=== PATIENT | female | born 1965 | race Caucasian/White ===

== ENCOUNTER 2016-10-27 10:37 | Inpatient (IN) | payer OTHER ==
[2016-10-27] MEDS ORDERED: Sodium Chloride 0.9% 1,000 ML IV STA ×2 (11:14→13:54)
[2016-10-27] MEDS ORDERED: Iohexol 240 (50 ml) PO ONE (11:14)
--- NOTE | 2016-10-27 11:26 | ED PDOC ---
HPI: Abdomen Time Seen by Provider: 10/27/16 11:02 Chief Complaint (Nursing): ENT Problem Chief Complaint (Provider): Abd pain History Per: Patient History/Exam Limitations: no limitations Onset/Duration Of Symptoms: Days (Yesterday) Additional Complaint(s): Pt. has dizziness like room spinning only on moving. When sitting still no issues. Also 1 episode of vomit, with tinge of blood yesterday. No diarrhea. Has abd pain diffuse as well. No back pain, dysuria, weakness. No headaches. No neck pain. No fever. No headache. No cough, dyspnea, chest pain. Has sore throat, but able to swallow. She saw pcp today and sent to the ED. Past Medical History Reviewed: Nursing Documentation, Vital Signs Vital Signs: Last Vital Signs Temp 97.8 F 10/27/16 10:41 Pulse 86 10/27/16 14:05 Resp 20 10/27/16 10:41 BP 82/36 L 10/27/16 14:05 Pulse Ox 97 10/27/16 14:04 - Medical History PMH: Anemia, Bipolar Disorder, Gastritis, Hypothyroidism, Pancreatitis Denies: Alzheimer's Disease, Anxiety, Arthritis, Asthma, Atrial Fibrillation , Bronchitis, CAD, Cardia Arrhythmia, CHF, COPD, Crohn's Disease, Dementia, Depression, Diverticulitis, Emphysema, Fractures, Gall Bladder Disease, HIV, Hypercholesterolemia, Hyperthyroidism, Kidney Stones, Migraine, Mitral Valve Prolapse, Multiple Sclerosis, Osteoporosis, Paranoia, Parkinson's Disease, Peripheral Edema, Pneumonia, Post Traumatic Stress Disorder, Pulmonary Embolism , Rheumatoid Arthritis, Schizophrenia, Seizures, Sickle Cell Disease, Sexually Transmitted Disease, Sleep Apnea, TIA Other PMH: hypotension; cirrhosis - Surgical History Surgical History: Appendectomy Denies: Pacemaker - Family History Family History: States: Unknown Family Hx - Social History Current smoker - smoking cessation education provided: No Alcohol: None Drugs: Denies - Home Medications Home Medications: Ambulatory Orders Medication Instructions Recorded Lactulose [Generlac] 10 gm PO DAILY 08/21/16 Lurasidone HCl [Latuda] 80 mg PO HS 08/21/16 Ursodiol [Actigall] 300 mg PO BID 08/21/16 Zolpidem [Ambien] 10 mg PO HS PRN 08/21/16 clonazePAM [Klonopin] 0.5 mg PO TID 08/21/16 lamoTRIgine [Lamictal] 200 mg PO BID 08/21/16 Benztropine [Cogentin] 0.5 mg PO DAILY 10/27/16 Carvedilol [Coreg] 6.25 mg PO BID 10/27/16 Furosemide [Lasix] 40 mg PO DAILY 10/27/16 Levothyroxine [Synthroid] 75 mcg PO DAILY 10/27/16 Oxybutynin Chloride [Oxybutynin 10 mg PO DAILY 10/27/16 Chloride ER] Promethazine [Phenergan Syrup] 6.25 mg PO Q6H 10/27/16 Spironolactone [Aldactone] 100 mg PO DAILY 10/27/16 - Allergies Allergies/Adverse Reactions: Allergies Allergy/AdvReac Type Severity Reaction Status Date / Time No Known Allergies Allergy Verified 10/27/16 10:40 Review of Systems ROS Statement: Except As Marked, All Systems Reviewed And Found Negative Constitutional: Positive for: Weakness Gastrointestinal: Positive for: Nausea, Vomiting, Abdominal Pain, Hematemesis Neurological: Positive for: Weakness, Dizziness Physical Exam - Reviewed Nursing Documentation Reviewed: Yes Vital Signs Reviewed: Yes - Physical Exam Appears: Positive for: Uncomfortable Head Exam: Positive for: ATRAUMATIC, NORMAL INSPECTION, NORMOCEPHALIC Skin: Positive for: Normal Color, Warm, DRY Eye Exam: Positive for: EOMI, Normal appearance, PERRL ENT: Positive for: Normal ENT Inspection Neck: Positive for: Normal, Painless ROM, Supple Cardiovascular/Chest: Positive for: Regular Rate, Rhythm. Negative for: Edema Respiratory: Positive for: CNT, Normal Breath Sounds Gastrointestinal/Abdominal: Positive for: Bowel Sounds, Soft, Tenderness (mild diffuse). Negative for: Distended Back: Positive for: Normal Inspection. Negative for: L CVA Tenderness, R CVA Tenderness Extremity: Positive for: Normal ROM. 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 Negative for: Facial Droop - Laboratory Results Result Diagrams: 10/27/16 12:40 10/27/16 11:47 Interpretation Of Abn Labs: 6 hg, 37/1.3 bun/cr - ECG ECG: Positive for: Interpreted By Me, Viewed By Me ECG Rhythm: Positive for: Normal QRS, Normal ST Segment, Sinus Rhythm O2 Sat by Pulse Oximetry: 97 Pulse Ox Interpretation: Normal - CT Scan/US head ct Other Rad Studies (CT/US): Read By Radiologist Other Rad Interpretation: no acute - Progress ED Course And Treament: 1441: Stable. Spoke with Omar for Dr. Metz. Will admit tele. He will call consultants and put in further orders. Will give 500ml bolus of Lacate ringers. Pain free. BP chronically low per pt. AAOx3. Disposition - Clinical Impression Clinical Impression: Abdominal pain, Anemia, GI bleed, Pancreatitis, Dehydration - Patient ED Disposition Is Patient to be Admitted: Yes Doctor Will See Patient In The: ED Counseled Patient/Family Regarding: Studies Performed, Diagnosis - Disposition Disposition Time: 14:43 Condition: FAIR - Pt Status Changed To: Hospital Disposition Of: Inpatient - Admit Certification Admit to Inpatient:: After my assessment, the patient will require hospitalization for at least two midnights. This is because of the severity of symptoms shown, intensity of services needed, and/or the medical risk in this patient being treated as an outpatient. - POA Present On Arrival: None
--- NOTE | 2016-10-27 12:16 | CT ---
PROCEDURE: CT HEAD WITHOUT CONTRAST. HISTORY: dizziness COMPARISON: 02/01/2014 TECHNIQUE: Axial computed tomography images were obtained through the head/brain without intravenous contrast. Radiation dose: Total exam DLP = 805 mGy-cm. FINDINGS: HEMORRHAGE: No intracranial hemorrhage. BRAIN: No mass effect or edema. Minimal age related changes are appreciated. No cortical effacement is noted. VENTRICLES: Unremarkable. No hydrocephalus. CALVARIUM: Unremarkable. PARANASAL SINUSES: Mild mucosal changes are seen in the ethmoid air cells without air-fluid level. MASTOID AIR CELLS: Unremarkable as visualized. No inflammatory changes. OTHER FINDINGS: Retro-orbital regions are unremarkable. IMPRESSION: No evidence of recent infarct or intracranial hemorrhage. No interval change from prior study.
[2016-10-27] MEDS ORDERED: Iohexol 240 (50 ml) ONE (12:19)
[2016-10-27 12:22] LABS: PARTIAL THROMBOPLASTIN TIME 22.8 SECONDS (23.3-32.5)
[2016-10-27 12:30] LABS: ALB/GLOB RATIO 0.9 (1.0-2.1); ALCOHOL SERUM < 10 mg/dl (0-10); ALKALINE PHOSPHATASE 115 U/L (38-126); ALT/SGPT 52 U/L (9-52); AST/SGOT 50 U/L (14-36); BILIRUBIN,TOTAL 0.9 mg/dl (0.2-1.3); BLOOD UREA NITROGEN 37 mg/dl (7-17); CALCIUM 8.2 mg/dL (8.4-10.2); CARBON DIOXIDE 19 mmol/L (22-30); CHLORIDE 104 mmol/L (98-107); GFR AFRICAN-AMERICAN 52; GLUCOSE,RANDOM 191 mg/dL (65-105); LIPASE 343 U/L (23-300); POTASSIUM 4.5 MMOL/L (3.6-5.0); SODIUM 131 mmol/l (132-148)
[2016-10-27 13:32] LABS: BASO % 0.3 % (0.0-2.0); EOS # 0.1 K/uL (0.0-0.7); HEMATOCRIT 18.7 % (34.0-47.0); LYMPH # 1.2 K/uL (1.0-4.3); LYMPH % 22.5 % (20.0-40.0); MEAN CELL VOLUME 78.7 fl (81.0-99.0); MEAN CORPUSCULAR HEMOGLOBIN 25.4 pg (27.0-31.0); MEAN CORPUSCULAR HGB CONC 32.3 g/dL (33.0-37.0); MEAN PLATELET VOLUME 11.4 fl (7.2-11.7); MONO # 0.3 K/uL (0.0-0.8); MONO % 5.2 % (0.0-10.0); NEUT # 3.8 K/uL (1.8-7.0); NRBC % 0.2 % (0.0-0.0); RED CELL DISTRIBUTION WIDTH 18.6 % (11.5-14.5); WHITE BLOOD COUNT 5.3 K/uL (4.8-10.8)
[2016-10-27] MEDS ORDERED: Sodium Chloride 0.9% 50 ML IV ONE (14:34)
[2016-10-27] MEDS ORDERED: Iohexol 300 100 ML IJ ONE (14:34)
[2016-10-27] MEDS ORDERED: Patient's Own Med (Zolpidem [Ambien] 10 MG) PO PRN (14:34)
[2016-10-27] MEDS ORDERED: Lactated Ringer's 500 ML IV SCH (14:45)
[2016-10-27] MEDS: Pantoprazole 40 MG in Sodium Chloride 0.9% 100 ML IVPB SCH ×2 (15:24→19:00)
--- NOTE | 2016-10-27 16:14 | CT ---
PROCEDURE: CT Abdomen and Pelvis with contrast HISTORY: abd pain COMPARISON: 08/22/2016 TECHNIQUE: Contrast dose: 100 cc Radiation dose: Total exam DLP = mGy-cm. FINDINGS: LOWER THORAX: Evaluation of the lung bases reveals no evidence of infiltrate or pleural effusion. No pericardial effusion is seen. Small hiatal hernia is appreciated. LIVER: There is once again mild coarse density of the liver with prominent left lobe identified. A very small subtle hypodensity in the anterior aspect of the right lobe is unchanged. No new lesions within the liver are seen. GALLBLADDER AND BILE DUCTS: There is probable mild decrease in pericholecystic fluid when compared to prior study gallbladder wall is grossly unchanged without new wall thickening. A few small gallstones are identified in the neck of the gallbladder. Common bile duct is grossly unchanged from prior study. No new intrahepatic ductal dilatation is seen. PANCREAS: There appears to be some mild areas of peripancreatic inflammatory change surrounding the whole pancreas. Pancreatic head is once again slightly prominent without focal mass. Findings suggest pancreatitis in the correct clinical setting. No pseudocyst formation is seen. SPLEEN: Spleen is once again enlarged. A few small perisplenic varices are noted with some possible smaller subtle varices seen in the esophageal region. ADRENALS: Unremarkable. No mass. KIDNEYS AND URETERS: Unremarkable. No hydronephrosis. No solid mass. VASCULATURE: Enlarged portal veins without thrombus, with additional enlarged splenic vein. Hepatic veins are unremarkable. BOWEL: There appears to be some areas of wall thickening within the cecum and right colon similar to prior study. Remainder of the colon shows no evidence of significant wall thickening. Terminal ileum is unremarkable. Appendix is not well seen. No small bowel dilatation is seen. There is however nonspecific small bowel fold thickening. A portion of this may be related to hypoproteinemia, however enteritis could not be excluded. APPENDIX: Appendix not well seen although no right lower quadrant inflammatory changes are seen. PERITONEUM: There is been significant interval decrease and resolution of previously identified moderate ascites. There is some nonspecific induration of the mesenteric with a number of small scattered mesenteric nodes identified. LYMPH NODES: No enlarged retroperitoneal lymph nodes identified. No pelvic or inguinal adenopathy. BLADDER: Unremarkable. REPRODUCTIVE: Uterus is normal in size. No adnexal masses are noted. BONES: Moderate degenerative disc disease at L5-S1, unchanged. No new compression fractures seen. OTHER FINDINGS: There appears to be the suggestion of some mild thickening in the antrum and duodenum. Gastritis and a duodenitis are not excluded. No focal collection adjacent this region to suggest perforation is seen. The thickening in the duodenum may be related to the above pancreatitis. IMPRESSION: Resolution of previously identified moderate ascites. Findings still suggestive of cirrhosis and splenomegaly with portal vein enlargement and probable varices. Findings consistent with mild pancreatitis without pseudocyst. No common bile duct or intrahepatic ductal dilatation. Possible antritis and duodenitis which may be related to the pancreatitis. In addition there is small bowel fold thickening without bowel obstruction. Enteritis is not excluded. There is persistent cecal and proximal right colonic wall thickening noted. Mild colitis is not excluded in.
[2016-10-27] MEDS: Promethazine 6.25 MG/5 ML CUP PO SCH ×2 (17:04→21:09)
--- NOTE | 2016-10-27 18:46 | PCM.RRTMUL ---
[facility] Nurse Assessment - Vital Signs Blood Pressure:: 98/62 Pulse Rate:: 84 Responder Note - Time WEEDER THINNER was called Time WEEDER THINNER was called:: 18:44 - Location Location: [facility] - [facility] Team [facility] Leader:: Andrew Blancas (Dr. Calvin) Resident:: Jamila Sheldon - Vital Signs at Initial Assessment Blood Pressure:: 90/52 Pulse Rate:: 72 - Acute Change in Patient Acute Change in Patient: (Select all that apply): Acute change in SBP below 90mmHg - Gastro-Intestinal Current Diet Ordered: Current Diet 10/27/16 Dinner NPO Diet [DIET] Summary - Summary of Event Summary of Event: S: 51yo F with PMhx Anemia, Bipolar Disorder, Gastritis, Hypothyroidism, Pancreatitis admitted for GI bleed. WE[facility]ER THINNER call for hypotension. Denies chest pain O: BP 90/52, HR 72. CT abd reviewed with ascites and probable varices A: received 1 unit pRBC P: -run 2nd unit pRBC at faster rate -repeat CBC -3rd unit pRBC -will transfer to ICU once accepted by unit
[2016-10-27] MEDS ORDERED: LURASIDONE HCL 80 MG PO SCH (22:00)
[2016-10-27 23:57] LABS: IRON 14 ug/dL (37-170)
[2016-10-28] MEDS: Pantoprazole 40 MG in Sodium Chloride 0.9% 100 ML IVPB SCH ×5 (00:49→20:56)
[2016-10-28] MEDS: Promethazine 6.25 MG/5 ML CUP PO SCH ×5 (04:26→20:58)
[2016-10-28] MEDS: Levothyroxine 75 MCG TAB PO SCH (06:04)
[2016-10-28 10:23] LABS: HEMATOCRIT 26.4 % (34.0-47.0); MEAN CORPUSCULAR HEMOGLOBIN 27.3 pg (27.0-31.0); MEAN CORPUSCULAR HGB CONC 33.5 g/dL (33.0-37.0); WHITE BLOOD COUNT 4.3 K/uL (4.8-10.8)
--- NOTE | 2016-10-28 10:30 | CP.PCM.HP ---
History of Present Illness - History of Present Illness History of Present Illness: pt comfortable in bed, admitted for 3 days of dizziness and bloody stool. has h/ o same w/ egd/colonoscpy 1 yr ago. has seen pmd for same captain assistant nad was sent to er. gi consult pending. bw noted. s/p 2 units prbc. no abd pain. n/v, d/c, f/c. no blood bm at present. h/o pancreatitis, liver dz, pancytopenia Present on Admission - Present on Admission Any Indicators Present on Admission: No Review of Systems - Gastrointestinal Gastrointestinal: As Per HPI, Hematochezia Past Patient History - Infectious Disease Hx of Infectious Diseases: None - Tetanus Immunizations Tetanus Immunization: Unknown - Past Medical History & Family History Past Medical History?: Yes - Past Social History Smoking Status: Former Smoker - CARDIAC Hx Atrial Fibrillation: No Hx Cardia Arrhythmia: No Hx Congestive Heart Failure: No Hx Hypercholesterolemia: No Hx Hypertension: Yes Hx Mitral Valve Prolapse: No Hx Pacemaker: No Hx Peripheral Edema: No - PULMONARY Hx Asthma: No Hx Bronchitis: No Hx Chronic Obstructive Pulmonary Disease (COPD): No Hx Emphysema: No Hx Pneumonia: No Hx Pulmonary Embolism: No Hx Sleep Apnea: No - NEUROLOGICAL Hx Alzheimer's Disease: No Hx Dementia: No Hx Migraine: No Hx Multiple Sclerosis: No Hx Parkinson's Disease: No Hx Seizures: No Hx Transient Ischemic Attacks (TIA): No - HEENT Hx HEENT Problems: No Hx Blind: No - RENAL Hx Chronic Kidney Disease: No - ENDOCRINE/METABOLIC Hx Hyperthyroidism: No Hx Hypothyroidism: Yes - HEMATOLOGICAL/ONCOLOGICAL Hx Anemia: Yes Hx Human Immunodeficiency Virus (HIV): No Hx Sickle Cell Disease: No - INTEGUMENTARY Hx Dermatological Problems: No - MUSCULOSKELETAL/RHEUMATOLOGICAL Hx Falls: Yes - GASTROINTESTINAL Hx Crohn's Disease: No Hx Diverticulitis: No Hx Gall Bladder Disease: No Hx Gastritis: Yes Hx Pancreatitis: Yes - GENITOURINARY/GYNECOLOGICAL Hx Sexually Transmitted Disorders: No - PSYCHIATRIC Hx Bipolar Disorder: Yes Hx Substance Use: No - SURGICAL HISTORY Hx Appendectomy: Yes - ANESTHESIA Hx Anesthesia: Yes Hx Anesthesia Reactions: No Hx Malignant Hyperthermia: No Has any member of the family had a problem w/ anesthesia?: No Meds Allergies/Adverse Reactions: Allergies Allergy/AdvReac Type Severity Reaction Status Date / Time No Known Allergies Allergy Verified 03/18/17 10:40 Physical Exam - Constitutional Appears: Well, Non-toxic, No Acute Distress - Head Exam Head Exam: ATRAUMATIC, NORMAL INSPECTION, NORMOCEPHALIC - Eye Exam Eye Exam: EOMI, Normal appearance, PERRL Pupil Exam: NORMAL ACCOMODATION, PERRL - ENT Exam ENT Exam: Mucous Membranes Moist, Normal Exam - Neck Exam Neck exam: Positive for: Normal Inspection - Respiratory Exam Respiratory Exam: Clear to Auscultation Bilateral, NORMAL BREATHING PATTERN - Cardiovascular Exam Cardiovascular Exam: REGULAR RHYTHM, RRR, +S1, +S2 - GI/Abdominal Exam GI & Abdominal Exam: Normal Bowel Sounds, Soft. absent: Tenderness - Rectal Exam Rectal Exam: Bloody Stool - Extremities Exam Extremities exam: Positive for: full ROM, normal capillary refill, normal inspection, pedal pulses present - Back Exam Back exam: NORMAL INSPECTION - Neurological Exam Neurological exam: Alert, CN II-XII Intact, Normal Gait, Oriented x3, Reflexes Normal - Psychiatric Exam Psychiatric exam: Normal Affect, Normal Mood - Skin Skin Exam: Dry, Intact, Normal Color, Warm Additional comments: slightly pale Results - Vital Signs Recent Vital Signs: Last Vital Signs Temp 98.0 F 10/28/16 09:12 Pulse 72 10/28/16 09:16 Resp 20 10/28/16 09:12 BP 89/49 L 10/28/16 09:17 Pulse Ox 96 10/28/16 09:12 - Labs Result Diagrams: 10/28/16 08:30 10/28/16 10:30 Labs: Laboratory Results - last 24 hr 10/27/16 10/27/16 10/27/16 15:00 15:50 16:37 POC Glucose (mg/dL) 130 H Iron 14 L TIBC 397 Ferritin 9.1 L Vitamin B12 895 10/27/16 22:21 POC Glucose (mg/dL) 116 H Iron TIBC Ferritin Vitamin B12 Assessment & Plan (1) Cirrhosis of liver Assessment and Plan: gi trend bw Status: Acute (2) Colitis Assessment and Plan: npo ivf gi afebrile at this time Status: Acute (3) GI bleed Assessment and Plan: protnix gtt ?? egd/colonscopy as per gi gi consult s/p 2 units prbc monitor bw Status: Acute (4) Pancreatitis Assessment and Plan: trend lipase npo LR gi no pain at prenset Status: Acute (5) DVT prophylaxis Assessment and Plan: scd and aehose no anticoag r/t gi bleed Status: Acute (6) Pancytopenia Assessment and Plan: heme/onc trend bw s/p 2 unit prbc Status: Chronic Priority: Medium (7) Coagulopathy Assessment and Plan: r/t liver cirrhosis heme/onc Status: Acute Decision To Admit - Pt Status Changed To: Hospital Disposition Of: Inpatient - Admit Certification Admit to Inpatient:: After my assessment, the patient will require hospitalization for at least two midnights. This is because of the severity of symptoms shown, intensity of services needed, and/or the medical risk in this patient being treated as an outpatient. - . Bed Request Type: Telemetry Admitting Physician: Stanley Metz
[2016-10-28 10:41] LABS: MEAN CELL VOLUME 81.5 fl (81.0-99.0)
[2016-10-28 11:15] LABS: ALB/GLOB RATIO 0.8 (1.0-2.1); ALKALINE PHOSPHATASE 109 U/L (38-126); ALT/SGPT 55 U/L (9-52); AST/SGOT 95 U/L (14-36); BILIRUBIN,TOTAL 1.7 mg/dl (0.2-1.3); BLOOD UREA NITROGEN 21 mg/dl (7-17); CALCIUM 7.7 mg/dL (8.4-10.2); CARBON DIOXIDE 19 mmol/L (22-30); CHLORIDE 109 mmol/L (98-107); GFR AFRICAN-AMERICAN > 60; GLUCOSE,RANDOM 113 mg/dL (65-105); SODIUM 135 mmol/l (132-148); TOTAL PROTEIN 5.9 G/DL (6.3-8.2)
--- NOTE | 2016-10-28 13:07 | CP.PCM.CON ---
<Augustina March - Last Filed: 10/28/16 13:27> History of Present Illness - History of Present Illness History of Present Illness: Gastroenterology Fellow/PGY4 Consult Note 51 year old female with history of Alcoholic cirrhosis prior paracentesis 2014 and 08/2016 without SBP, GI Bleed 11/2014 with EGD showing esophageal, gastric, and splenic varices presenting with vomiting and dizziness. Patient describes onset of epigastric pain followed by one "large" episode of hematemesis with complete change of toilet bowel water. She endorses alcohol sobriety for two years. Associated dizziness on presentation, slight improvement today. Persistent constant epigastric discomfort, pain scale 6/10. She denies indigestion, acid reflux, bloating, heartburn, bloating, melena, hematochezia, weight loss, confusion, or leg swelling. She notes repeat outpatient EGD with banding [place] [address] Grover Bryant?, whom she last saw two weeks ago for routine lab work. Colonoscopy 2014 she endorses to be normal with planned surveillance in two years. Endorsed transplant evaluation at [facility] three weeks ago for routine labs and Ultrasound, Dr. Lew?, with follow up appointment 11/07/16. Family-denies colon cancer Social-endorsed sobriety for 2 years, previous one bottle of wine weekly x 10 years -quit tobacco six months ago-previous 5 cigarettes/day for 2 years, denies illicit drugs Surgery- none Review of Systems - Review of Systems Review of Systems: A 12-point review of system negative except for as above Past Patient History - Infectious Disease Hx of Infectious Diseases: None - Tetanus Immunizations Tetanus Immunization: Unknown - Past Medical History & Family History Past Medical History?: Yes - Past Social History Smoking Status: Former Smoker - CARDIAC Hx Atrial Fibrillation: No Hx Cardia Arrhythmia: No Hx Congestive Heart Failure: No Hx Hypercholesterolemia: No Hx Hypertension: Yes Hx Mitral Valve Prolapse: No Hx Pacemaker: No Hx Peripheral Edema: No - PULMONARY Hx Asthma: No Hx Bronchitis: No Hx Chronic Obstructive Pulmonary Disease (COPD): No Hx Emphysema: No Hx Pneumonia: No Hx Pulmonary Embolism: No Hx Sleep Apnea: No - NEUROLOGICAL Hx Alzheimer's Disease: No Hx Dementia: No Hx Migraine: No Hx Multiple Sclerosis: No Hx Parkinson's Disease: No Hx Seizures: No Hx Transient Ischemic Attacks (TIA): No - HEENT Hx HEENT Problems: No Hx Blind: No - RENAL Hx Chronic Kidney Disease: No - ENDOCRINE/METABOLIC Hx Hyperthyroidism: No Hx Hypothyroidism: Yes - HEMATOLOGICAL/ONCOLOGICAL Hx Anemia: Yes Hx Human Immunodeficiency Virus (HIV): No Hx Sickle Cell Disease: No - INTEGUMENTARY Hx Dermatological Problems: No - MUSCULOSKELETAL/RHEUMATOLOGICAL Hx Falls: Yes - GASTROINTESTINAL Hx Crohn's Disease: No Hx Diverticulitis: No Hx Gall Bladder Disease: No Hx Gastritis: Yes Hx Pancreatitis: Yes - GENITOURINARY/GYNECOLOGICAL Hx Sexually Transmitted Disorders: No - PSYCHIATRIC Hx Bipolar Disorder: Yes Hx Substance Use: No - SURGICAL HISTORY Hx Appendectomy: Yes - ANESTHESIA Hx Anesthesia: Yes Hx Anesthesia Reactions: No Hx Malignant Hyperthermia: No Has any member of the family had a problem w/ anesthesia?: No Meds Allergies/Adverse Reactions: Allergies Allergy/AdvReac Type Severity Reaction Status Date / Time No Known Allergies Allergy Verified 10/27/16 10:40 - Medications Medications: Current Medications Benztropine Mesylate (Cogentin) 0.5 mg PO DAILY [facility] Last Admin: 10/28/16 09:15 Dose: 0.5 mg Carvedilol (Coreg) 6.25 mg PO BID [facility] Last Admin: 10/28/16 09:16 Dose: Not Given Clonazepam (Klonopin) 0.5 mg PO TID [facility] Last Admin: 10/28/16 09:19 Dose: 0.5 mg Furosemide (Lasix) 40 mg PO DAILY [facility] Last Admin: 10/28/16 09:17 Dose: Not Given Home Med (Lurasidone Hcl [Latuda]) 80 mg PO HS [facility] Pantoprazole Sodium 40 mg/ (Sodium Chloride) 100 mls @ 20 mls/hr IVPB Q5H [facility] PRN Reason: 8 MG/HR Last Admin: 10/28/16 09:17 Dose: 20 mls/hr Lamotrigine (Lamictal) 200 mg PO BID [facility] Last Admin: 10/28/16 09:16 Dose: 200 mg Levothyroxine Sodium (Synthroid) 75 mcg PO DAILY@0630 [facility] Last Admin: 10/28/16 06:04 Dose: 75 mcg Oxybutynin Chloride (Ditropan Tab) 5 mg PO BID [facility] Last Admin: 10/28/16 09:16 Dose: 5 mg Promethazine HCl (Phenergan Syrup) 6.25 mg PO Q6H [facility] Last Admin: 10/28/16 09:16 Dose: 6.25 mg Spironolactone (Aldactone) 100 mg PO DAILY [facility] Last Admin: 10/28/16 09:15 Dose: 100 mg Ursodiol (Actigall) 300 mg PO BID [facility] Last Admin: 10/28/16 09:15 Dose: 300 mg Zolpidem Tartrate (Ambien) 10 mg PO HS PRN PRN Reason: Insomnia Physical Exam - Constitutional Appears: Non-toxic, No Acute Distress - Head Exam Head Exam: ATRAUMATIC, NORMOCEPHALIC - Eye Exam Eye Exam: EOMI, PERRL Pupil Exam: NORMAL ACCOMODATION, PERRL. absent: Miosis, Mydriatic - ENT Exam ENT Exam: Mucous Membranes Moist, Normal Oropharynx - Neck Exam Neck exam: Positive for: Full Rom, Normal Inspection - Respiratory Exam Respiratory Exam: Clear to Auscultation Bilateral. absent: Rales, Rhonchi, Wheezes - Cardiovascular Exam Cardiovascular Exam: RRR, +S1, +S2. absent: Gallop, Rubs - GI/Abdominal Exam GI & Abdominal Exam: Normal Bowel Sounds, Organomegaly, Soft, Tenderness. absent: Distended, Firm, Guarding, Rebound, Rigid - Extremities Exam Extremities exam: Positive for: full ROM. Negative for: pedal edema - Neurological Exam Neurological exam: Alert, Oriented x3 Additional comments: no asterixis - Psychiatric Exam Psychiatric exam: Normal Affect, Normal Mood - Skin Skin Exam: Dry, Intact, Normal Color, Warm Results - Vital Signs Recent Vital Signs: Last Vital Signs Temp 98.0 F 10/28/16 09:12 Pulse 72 10/28/16 09:16 Resp 20 10/28/16 09:12 BP 89/49 L 10/28/16 09:17 Pulse Ox 96 10/28/16 09:12 - Labs Result Diagrams: 10/28/16 08:30 10/28/16 10:30 Labs: Laboratory Results - last 24 hr 10/27/16 10/27/16 10/27/16 15:00 15:50 16:37 WBC RBC Hgb Hct MCV MCH MCHC RDW Sodium Potassium Chloride Carbon Dioxide Anion Gap BUN Creatinine Est GFR ( Amer) Est GFR (Non-Af Amer) POC Glucose (mg/dL) 130 H Random Glucose Calcium Iron 14 L TIBC 397 Ferritin 9.1 L Total Bilirubin AST ALT Alkaline Phosphatase Total Protein Albumin Globulin Albumin/Globulin Ratio Vitamin B12 895 10/27/16 10/28/16 10/28/16 22:21 08:30 10:30 WBC 4.3 L RBC 3.24 L Hgb 8.8 L D Hct 26.4 L MCV 81.5 D MCH 27.3 MCHC 33.5 RDW 18.0 H Sodium 135 Potassium 4.0 Chloride 109 H Carbon Dioxide 19 L Anion Gap 11 BUN 21 H Creatinine 0.9 Est GFR ( Amer) > 60 Est GFR (Non-Af Amer) > 60 POC Glucose (mg/dL) 116 H Random Glucose 113 H Calcium 7.7 L Iron TIBC Ferritin Total Bilirubin 1.7 H AST 95 H D ALT 55 H Alkaline Phosphatase 109 Total Protein 5.9 L Albumin 2.7 L Globulin 3.2 Albumin/Globulin Ratio 0.8 L Vitamin B12 Assessment & Plan - Assessment and Plan (Free Text) Assessment: 51 year old female with history of Alcoholic cirrhosis prior paracentesis 2014 and 08/2016 without SBP, GI Bleed 11/2014 with EGD showing esophageal, gastric, and splenic varices without banding presenting with hematemesis, abdominal pain, and dizziness. CT A/P PO/IV contrast showing prominent left hepatic lobe, varices, and hepatosplenomegay. Repeat outpatient EGD with banding in 2014 by established gastroneterologt ( Dr. Grover Bryant?). Colonoscopy 2015 endorsed to be normal with planned surveillance in two years. Endorsed transplant evaluation at [facility] three weeks ago for routine labs and Ultrasound, (Dr. Lew?), with follow up appointment 11/07/16. Plan: >received 3 Units pRBCs, appropriate response >trend H/H >continue PPI drip >ordered octreotide drip >ordered Doppler U/S >elevated LFTs-ordered Hepatitis panel >will benefit from EGD to evaluate known varices and suspicion of variceal bleed >low platelets, will hold two pools of platelets, Goal>[id number] to be able to perform esophageal banding >discuss EGD scheduling with attending >MELD 9 (10/27) >continue home Lasix/spironolactone, Lactulose beta teddy >patient endorses alcoholic sobriety, counselled on continued cessation <Shanique Stahl MD - Last Filed: 10/28/16 13:53> Meds - Medications Medications: Current Medications Benztropine Mesylate (Cogentin) 0.5 mg PO DAILY [facility] Last Admin: 10/28/16 09:15 Dose: 0.5 mg Carvedilol (Coreg) 6.25 mg PO BID [facility] Last Admin: 10/28/16 09:16 Dose: Not Given Clonazepam (Klonopin) 0.5 mg PO TID [facility] Last Admin: 10/28/16 09:19 Dose: 0.5 mg Furosemide (Lasix) 40 mg PO DAILY [facility] Last Admin: 10/28/16 09:17 Dose: Not Given Home Med (Lurasidone Hcl [Latuda]) 80 mg PO HS [facility] Pantoprazole Sodium 40 mg/ (Sodium Chloride) 100 mls @ 20 mls/hr IVPB Q5H [facility] PRN Reason: 8 MG/HR Last Admin: 10/28/16 09:17 Dose: 20 mls/hr Lactated Ringer's (Lactated Ringer's) 1,000 mls @ 100 mls/hr IV .Q10H [facility] Lamotrigine (Lamictal) 200 mg PO BID [facility] Last Admin: 10/28/16 09:16 Dose: 200 mg Levothyroxine Sodium (Synthroid) 75 mcg PO DAILY@0630 [facility] Last Admin: 10/28/16 06:04 Dose: 75 mcg Oxybutynin Chloride (Ditropan Tab) 5 mg PO BID [facility] Last Admin: 10/28/16 09:16 Dose: 5 mg Promethazine HCl (Phenergan Syrup) 6.25 mg PO Q6H [facility] Last Admin: 10/28/16 09:16 Dose: 6.25 mg Spironolactone (Aldactone) 100 mg PO DAILY [facility] Last Admin: 10/28/16 09:15 Dose: 100 mg Ursodiol (Actigall) 300 mg PO BID [facility] Last Admin: 10/28/16 09:15 Dose: 300 mg Zolpidem Tartrate (Ambien) 10 mg PO HS PRN PRN Reason: Insomnia Results - Vital Signs Recent Vital Signs: Last Vital Signs Temp 98.0 F 10/28/16 12:00 Pulse 70 10/28/16 12:00 Resp 18 10/28/16 12:00 BP 80/44 L 10/28/16 12:00 Pulse Ox 99 10/28/16 12:00 - Labs Result Diagrams: 10/28/16 08:30 10/28/16 10:30 Labs: Laboratory Results - last 24 hr 10/27/16 10/27/16 10/27/16 15:00 15:50 16:37 WBC RBC Hgb Hct MCV MCH MCHC RDW Sodium Potassium Chloride Carbon Dioxide Anion Gap BUN Creatinine Est GFR ( Amer) Est GFR (Non-Af Amer) POC Glucose (mg/dL) 130 H Random Glucose Calcium Iron 14 L TIBC 397 Ferritin 9.1 L Total Bilirubin AST ALT Alkaline Phosphatase Total Protein Albumin Globulin Albumin/Globulin Ratio Vitamin B12 895 10/27/16 10/28/16 10/28/16 22:21 08:30 10:30 WBC 4.3 L RBC 3.24 L Hgb 8.8 L D Hct 26.4 L MCV 81.5 D MCH 27.3 MCHC 33.5 RDW 18.0 H Sodium 135 Potassium 4.0 Chloride 109 H Carbon Dioxide 19 L Anion Gap 11 BUN 21 H Creatinine 0.9 Est GFR ( Amer) > 60 Est GFR (Non-Af Amer) > 60 POC Glucose (mg/dL) 116 H Random Glucose 113 H Calcium 7.7 L Iron TIBC Ferritin Total Bilirubin 1.7 H AST 95 H D ALT 55 H Alkaline Phosphatase 109 Total Protein 5.9 L Albumin 2.7 L Globulin 3.2 Albumin/Globulin Ratio 0.8 L Vitamin B12 Attending/Attestation - Attestation I have personally seen and examined this patient.: Yes I have fully participated in the care of the patient.: Yes I have reviewed all pertinent clinical information: Yes Notes (Text): 10/28/16 13:47 Patient seen and examined with Gi fellow on rounds this am. This is a 51 year old female with history of alcoholic cirrhosis complicated by ascites, varices with prior paracentesis 05/2015 and 08/2016 without SBP, GI Bleed 11/2014 with EGD showing esophageal, gastric, and splenic varices without banding presenting with one episode of hematemesis yesterday. No episodes since admission. Has pancytopenia due to cirrhosis. CT A/P PO/IV contrast showing prominent left hepatic lobe, varices, and hepatosplenomegay. She states last alcohol drink was one year ago. States had appointment with [facility] three weeks ago for routine labs and Ultrasound, (Dr. Lew?), with follow up appointment 11/07/16. Will get doppler sonogram to rule out PV/ HV thrombus. Will order hepatitis and autoimmune serologies for new elevation of transminases.I am doubtful that she is completely abstinent from alcohol. Will benefit from repeat EGD to assess varices. Clear liquid diet today and tentative EGd in am. Discussed with the team. Continue octreotide and monitor for clinical symptoms of bleeding. Current MELD 8. Needs close hemodynamic monitoring.
[2016-10-28] MEDS: Lactated Ringer's 1,000 ML IV SCH ×2 (13:53→23:45)
--- NOTE | 2016-10-28 19:23 | CP.PCM.CON ---
History of Present Illness - History of Present Illness History of Present Illness: 51 year old female with a history of alcoholic cirrhosis complicated by portal hypertension with esophageal varices, splenomegaly, admitted with anemia and hematochezia/melena. The patient reports to seeing blood in the toilet bowl with black stools for about 1 weeks time. She has had this happen before and knee to come to the ER. In the ER she was found to be hypotensive and with a hgb of 6. She received 3 units of PRBC with improvement in her symptoms. Past medical history: alcoholic cirrhosis complicated by portal hypertension with esophageal varices, splenomegaly Past surgical history: Appendectomy Family history: Denies hematologic and oncologic problems Social history: Denies tobacco, former alcohol abuse, denies illicit drug use. Allergies: NKA Review of systems: All remaining review of systems including HEENT, cardiovascular, respiratory, gastrointestinal, genitourinary, musculoskeletal, dermatologic, neurologic, and psychiatric are negative unless mentioned in the HPI. Past Patient History - Infectious Disease Hx of Infectious Diseases: None - Tetanus Immunizations Tetanus Immunization: Unknown - Past Medical History & Family History Past Medical History?: Yes - Past Social History Smoking Status: Former Smoker - CARDIAC Hx Atrial Fibrillation: No Hx Cardia Arrhythmia: No Hx Congestive Heart Failure: No Hx Hypercholesterolemia: No Hx Hypertension: Yes Hx Mitral Valve Prolapse: No Hx Pacemaker: No Hx Peripheral Edema: No - PULMONARY Hx Asthma: No Hx Bronchitis: No Hx Chronic Obstructive Pulmonary Disease (COPD): No Hx Emphysema: No Hx Pneumonia: No Hx Pulmonary Embolism: No Hx Sleep Apnea: No - NEUROLOGICAL Hx Alzheimer's Disease: No Hx Dementia: No Hx Migraine: No Hx Multiple Sclerosis: No Hx Parkinson's Disease: No Hx Seizures: No Hx Transient Ischemic Attacks (TIA): No - HEENT Hx HEENT Problems: No Hx Blind: No - RENAL Hx Chronic Kidney Disease: No - ENDOCRINE/METABOLIC Hx Hyperthyroidism: No Hx Hypothyroidism: Yes - HEMATOLOGICAL/ONCOLOGICAL Hx Anemia: Yes Hx Human Immunodeficiency Virus (HIV): No Hx Sickle Cell Disease: No - INTEGUMENTARY Hx Dermatological Problems: No - MUSCULOSKELETAL/RHEUMATOLOGICAL Hx Falls: Yes - GASTROINTESTINAL Hx Crohn's Disease: No Hx Diverticulitis: No Hx Gall Bladder Disease: No Hx Gastritis: Yes Hx Pancreatitis: Yes - GENITOURINARY/GYNECOLOGICAL Hx Sexually Transmitted Disorders: No - PSYCHIATRIC Hx Bipolar Disorder: Yes Hx Substance Use: No - SURGICAL HISTORY Hx Appendectomy: Yes - ANESTHESIA Hx Anesthesia: Yes Hx Anesthesia Reactions: No Hx Malignant Hyperthermia: No Has any member of the family had a problem w/ anesthesia?: No Meds Allergies/Adverse Reactions: Allergies Allergy/AdvReac Type Severity Reaction Status Date / Time No Known Allergies Allergy Verified 10/27/16 10:40 - Medications Medications: Current Medications Benztropine Mesylate (Cogentin) 0.5 mg PO DAILY [facility] Last Admin: 10/28/16 09:15 Dose: 0.5 mg Carvedilol (Coreg) 6.25 mg PO BID [facility] Last Admin: 10/28/16 16:53 Dose: Not Given Clonazepam (Klonopin) 0.5 mg PO TID [facility] Last Admin: 10/28/16 16:52 Dose: 0.5 mg Furosemide (Lasix) 40 mg PO DAILY [facility] Last Admin: 10/28/16 09:17 Dose: Not Given Home Med (Lurasidone Hcl [Latuda]) 80 mg PO HS [facility] Pantoprazole Sodium 40 mg/ (Sodium Chloride) 100 mls @ 20 mls/hr IVPB Q5H [facility] PRN Reason: 8 MG/HR Last Admin: 10/28/16 16:54 Dose: 20 mls/hr Lactated Ringer's (Lactated Ringer's) 1,000 mls @ 100 mls/hr IV .Q10H [facility] Last Admin: 10/28/16 13:53 Dose: 100 mls/hr Lamotrigine (Lamictal) 200 mg PO BID [facility] Last Admin: 10/28/16 16:54 Dose: 200 mg Levothyroxine Sodium (Synthroid) 75 mcg PO DAILY@0630 [facility] Last Admin: 10/28/16 06:04 Dose: 75 mcg Oxybutynin Chloride (Ditropan Tab) 5 mg PO BID [facility] Last Admin: 10/28/16 16:52 Dose: 5 mg Promethazine HCl (Phenergan Syrup) 6.25 mg PO Q6H [facility] Last Admin: 10/28/16 13:53 Dose: 6.25 mg Spironolactone (Aldactone) 100 mg PO DAILY [facility] Last Admin: 10/28/16 09:15 Dose: 100 mg Ursodiol (Actigall) 300 mg PO BID [facility] Last Admin: 10/28/16 16:52 Dose: 300 mg Zolpidem Tartrate (Ambien) 10 mg PO HS PRN PRN Reason: Insomnia Physical Exam - Head Exam Head Exam: ATRAUMATIC - Eye Exam Eye Exam: Normal appearance - ENT Exam ENT Exam: Mucous Membranes Dry - Respiratory Exam Respiratory Exam: NORMAL BREATHING PATTERN - Cardiovascular Exam Cardiovascular Exam: +S1, +S2 - GI/Abdominal Exam GI & Abdominal Exam: Normal Bowel Sounds - Extremities Exam Extremities exam: Positive for: pedal edema - Neurological Exam Neurological exam: Oriented x3 - Psychiatric Exam Psychiatric exam: Normal Affect, Normal Mood - Skin Skin Exam: Warm Results - Vital Signs Recent Vital Signs: Last Vital Signs Temp 98.4 F 10/28/16 16:18 Pulse 77 10/28/16 16:53 Resp 20 10/28/16 16:18 BP 87/56 L 10/28/16 16:53 Pulse Ox 99 10/28/16 16:18 - Labs Result Diagrams: 10/28/16 08:30 10/28/16 10:30 Labs: Laboratory Results - last 24 hr 10/27/16 10/27/16 10/28/16 15:50 22:21 08:30 WBC 4.3 L RBC 3.24 L Hgb 8.8 L D Hct 26.4 L MCV 81.5 D MCH 27.3 MCHC 33.5 RDW 18.0 H Plt Count 35 L Sodium Potassium Chloride Carbon Dioxide Anion Gap BUN Creatinine Est GFR ( Amer) Est GFR (Non-Af Amer) POC Glucose (mg/dL) 116 H Random Glucose Calcium Iron 14 L TIBC 397 Total Bilirubin AST ALT Alkaline Phosphatase Total Protein Albumin Globulin Albumin/Globulin Ratio 10/28/16 10:30 WBC RBC Hgb Hct MCV MCH MCHC RDW Plt Count Sodium 135 Potassium 4.0 Chloride 109 H Carbon Dioxide 19 L Anion Gap 11 BUN 21 H Creatinine 0.9 Est GFR ( Amer) > 60 Est GFR (Non-Af Amer) > 60 POC Glucose (mg/dL) Random Glucose 113 H Calcium 7.7 L Iron TIBC Total Bilirubin 1.7 H AST 95 H D ALT 55 H Alkaline Phosphatase 109 Total Protein 5.9 L Albumin 2.7 L Globulin 3.2 Albumin/Globulin Ratio 0.8 L Assessment & Plan (1) Pancytopenia Assessment and Plan: splenic sequestration and thrombopoietin dysregulation iron stores low - secondary to chronic GI blood loss; s/p PRBC transfusion and will start IV Venofer GI evaluation to evaluate varices Status: Chronic Priority: Medium (2) Coagulopathy Assessment and Plan: liver disease FFP as needed Thank you for this interesting consult. Status: Acute
[2016-10-29] MEDS: Pantoprazole 40 MG in Sodium Chloride 0.9% 100 ML IVPB SCH ×4 (01:27→21:00)
[2016-10-29] MEDS: Promethazine 6.25 MG/5 ML CUP PO SCH ×4 (03:01→22:08)
[2016-10-29] MEDS: Levothyroxine 75 MCG TAB PO SCH (06:30)
--- NOTE | 2016-10-29 07:23 | CP.PCM.PN ---
Subjective - Date & Time of Evaluation Date of Evaluation: 10/29/16 Time of Evaluation: 07:23 - Subjective Subjective: no complaitns/distress no dizziness, no further blood bm/vomitus no f/c, n/v/d for egd today pendign am labs heme/onc nad gi consults appriciated Objective - Vital Signs/Intake and Output Vital Signs (last 24 hours): Temp Pulse Resp BP Pulse Ox 99.5 F 85 20 90/52 L 99 10/29/16 05:00 10/29/16 05:00 10/29/16 05:00 10/29/16 05:00 10/29/16 05:00 - Medications Medications: Current Medications Benztropine Mesylate (Cogentin) 0.5 mg PO DAILY [facility] Last Admin: 10/28/16 09:15 Dose: 0.5 mg Carvedilol (Coreg) 6.25 mg PO BID [facility] Last Admin: 10/28/16 16:53 Dose: Not Given Clonazepam (Klonopin) 0.5 mg PO TID [facility] Last Admin: 10/28/16 16:52 Dose: 0.5 mg Furosemide (Lasix) 40 mg PO DAILY [facility] Last Admin: 10/28/16 09:17 Dose: Not Given Home Med (Lurasidone Hcl [Latuda]) 80 mg PO HS [facility] Pantoprazole Sodium 40 mg/ (Sodium Chloride) 100 mls @ 20 mls/hr IVPB Q5H [facility] PRN Reason: 8 MG/HR Last Admin: 10/29/16 06:28 Dose: 20 mls/hr Lactated Ringer's (Lactated Ringer's) 1,000 mls @ 100 mls/hr IV .Q10H [facility] Last Admin: 10/28/16 23:45 Dose: 100 mls/hr Iron Sucrose 200 mg/ Sodium (Chloride) 110 mls @ 110 mls/hr IVPB DAILY [facility] Stop: 10/31/16 20:01 Last Admin: 10/28/16 20:52 Dose: 110 mls/hr Lamotrigine (Lamictal) 200 mg PO BID [facility] Last Admin: 10/28/16 16:54 Dose: 200 mg Levothyroxine Sodium (Synthroid) 75 mcg PO DAILY@0630 [facility] Last Admin: 10/29/16 06:30 Dose: 75 mcg Oxybutynin Chloride (Ditropan Tab) 5 mg PO BID [facility] Last Admin: 10/28/16 16:52 Dose: 5 mg Promethazine HCl (Phenergan Syrup) 6.25 mg PO Q6H [facility] Last Admin: 10/29/16 03:01 Dose: Not Given Spironolactone (Aldactone) 100 mg PO DAILY [facility] Last Admin: 10/28/16 09:15 Dose: 100 mg Ursodiol (Actigall) 300 mg PO BID [facility] Last Admin: 10/28/16 16:52 Dose: 300 mg Zolpidem Tartrate (Ambien) 10 mg PO HS PRN PRN Reason: Insomnia - Labs Labs: 10/28/16 08:30 10/28/16 10:30 PT 13.2 SECONDS (9.6-11.2) H 10/27/16 11:47 INR 1.27 (0.92-1.08) H 10/27/16 11:47 APTT 22.8 SECONDS (23.3-32.5) L 10/27/16 11:47 - Constitutional Appears: Well, Non-toxic, No Acute Distress - Head Exam Head Exam: ATRAUMATIC, NORMAL INSPECTION, NORMOCEPHALIC - Eye Exam Eye Exam: EOMI, Normal appearance, PERRL Pupil Exam: NORMAL ACCOMODATION, PERRL - ENT Exam ENT Exam: Mucous Membranes Moist, Normal Exam - Neck Exam Neck Exam: Full ROM, Normal Inspection. absent: Lymphadenopathy - Respiratory Exam Respiratory Exam: Clear to Ausculation Bilateral, NORMAL BREATHING PATTERN - Cardiovascular Exam Cardiovascular Exam: REGULAR RHYTHM, RRR, +S1, +S2. absent: Murmur - GI/Abdominal Exam GI & Abdominal Exam: Soft, Normal Bowel Sounds. absent: Tenderness - Extremities Exam Extremities Exam: Full ROM, Normal Capillary Refill, Normal Inspection. absent : Joint Swelling, Pedal Edema - Back Exam Back Exam: NORMAL INSPECTION - Neurological Exam Neurological Exam: Alert, Awake, CN II-XII Intact, Normal Gait, Oriented x3 - Psychiatric Exam Psychiatric exam: Normal Affect, Normal Mood - Skin Skin Exam: Dry, Intact, Normal Color, Warm Assessment and Plan (1) Cirrhosis of liver Status: Acute (2) Colitis Status: Acute (3) GI bleed Status: Acute (4) Pancreatitis Status: Acute (5) DVT prophylaxis Status: Acute (6) Pancytopenia Status: Chronic (7) Coagulopathy Status: Acute - Assessment and Plan (Free Text) Assessment: (1) Cirrhosis of liver Assessment and Plan: gi trend bw Status: Acute (2) Colitis Assessment and Plan: npo ivf gi afebrile at this time Status: Acute (3) GI bleed Assessment and Plan: protnix gtt ?? egd/colonscopy as per gi gi consult s/p 2 units prbc monitor bw Status: Acute (4) Pancreatitis Assessment and Plan: trend lipase npo LR gi no pain at prenset Status: Acute (5) DVT prophylaxis Assessment and Plan: scd and aehose no anticoag r/t gi bleed Status: Acute (6) Pancytopenia Assessment and Plan: heme/onc trend bw s/p 2 unit prbc Status: Chronic Priority: Medium (7) Coagulopathy Assessment and Plan: r/t liver cirrhosis heme/onc Status: Acute for egd today plt infusion prn prior to egd
[2016-10-29 09:49] LABS: BASO % 0.2 % (0.0-2.0); EOS % 0.8 % (0.0-4.0); HEMATOCRIT 20.8 % (34.0-47.0); LYMPH # 0.4 K/uL (1.0-4.3); LYMPH % 11.4 % (20.0-40.0); MEAN CELL VOLUME 81.6 fl (81.0-99.0); MEAN CORPUSCULAR HEMOGLOBIN 26.8 pg (27.0-31.0); MEAN CORPUSCULAR HGB CONC 32.8 g/dL (33.0-37.0); MEAN PLATELET VOLUME 10.7 fl (7.2-11.7); MONO # 0.2 K/uL (0.0-0.8); NEUT # 2.6 K/uL (1.8-7.0); NEUT % 81.6 % (50.0-75.0); NRBC % 1.1 % (0.0-0.0); RED CELL DISTRIBUTION WIDTH 18.6 % (11.5-14.5); WHITE BLOOD COUNT 3.1 K/uL (4.8-10.8)
--- NOTE | 2016-10-29 09:49 | CARD ---
APPROVED REPORT EKG Measurement Heart [id number] <Conclusion> Normal sinus rhythm Rightward axis Borderline ECG
[2016-10-29] MEDS: Lactated Ringer's 1,000 ML IV SCH ×2 (09:50→22:33)
[2016-10-29 10:37] LABS: ALB/GLOB RATIO 0.7 (1.0-2.1); ALKALINE PHOSPHATASE 70 U/L (38-126); ALT/SGPT 46 U/L (9-52); AST/SGOT 45 U/L (14-36); BILIRUBIN,TOTAL 1.3 mg/dl (0.2-1.3); BLOOD UREA NITROGEN 11 mg/dl (7-17); CALCIUM 7.2 mg/dL (8.4-10.2); CARBON DIOXIDE 15 mmol/L (22-30); CHLORIDE 106 mmol/L (98-107); GFR AFRICAN-AMERICAN > 60; GLUCOSE,RANDOM 72 mg/dL (65-105); LIPASE 66 U/L (23-300); POTASSIUM 3.9 MMOL/L (3.6-5.0); SODIUM 130 mmol/l (132-148); TOTAL PROTEIN 4.1 G/DL (6.3-8.2)
--- NOTE | 2016-10-29 11:32 | PQF GENQUE ---
This form is a permanent part of the medical record 10/29/16 Omar Alvarez, Would you please clarify if there is an associated diagnosis or not to go along with the following findings: BUN 37-> 11, Creatinine 1.3-> 0.7, GFR 43-> 60. Admitted with dizziness and bloody stools. Treated with IVF, Protonix, Transfusions, GI consult. Clarification of your documentation is requested to better reflect the severity of illness and intensity of treatment of your patient. PHYSICIAN'S RESPONSE Based on your medical judgment of the clinical indicators outlined above please clarify the following: [] Practitioner response dehydration likely r/t gi bleed/anemia [] If unable to determine, please check the box, sign and date. Present On Admission (POA) Indicator: [] Present at the time of admission [] Not present at the time of admission [] Clinically Undetermined In responding to this query, please exercise your independent professional judgment. The fact that a question is asked does not imply that any particular answer is desired or expected. Thank you for your clarification on this documentation. If you have any questions please call:[phone] * Thank you, Denice Vuong RN CDMP MTDD
[2016-10-29] MEDS ORDERED: Sodium Chloride 0.9% 250 ML IV ONE (13:46)
[2016-10-29] MEDS ORDERED: Midazolam 2 MG/2 ML VIAL ONE (13:59)
[2016-10-29] MEDS ORDERED: Propofol 10 mg/ml Inj (20 ML) ONE ×2 (13:59→15:10)
[2016-10-29] MEDS ORDERED: Etomidate 20 mg/10ml Inj IV ONE (14:46)
[2016-10-29] MEDS ORDERED: Flumazenil 0.1 mg/ml Inj (5ml) IVP ONE (15:41)
[2016-10-29] MEDS ORDERED: Lactated Ringer's 1,000 ML IV ONE (16:00)
[2016-10-29] MEDS ORDERED: HYDROmorphone 0.5 mg/0.5 ml ISec IVP PRN (16:12)
[2016-10-29] MEDS ORDERED: Cefepime 1 GM in Sodium Chloride 0.9% 100 ML IVPB SCH (16:35)
[2016-10-29] MEDS ORDERED: Cefepime (Maxipime) 1 g Inj IVPB ONE (16:55)
--- NOTE | 2016-10-30 01:45 | CP.PCM.PN ---
Subjective - Date & Time of Evaluation Date of Evaluation: 10/29/16 Time of Evaluation: 19:20 - Subjective Subjective: Receiving PRBC transfusion Objective - Vital Signs/Intake and Output Vital Signs (last 24 hours): Temp Pulse Resp BP Pulse Ox 98.2 F 78 20 92/54 L 98 10/29/16 23:53 10/29/16 23:53 10/29/16 23:53 10/29/16 23:53 10/29/16 23:53 Intake and Output: 10/29/16 10/30/16 18:59 06:59 Intake Total 400 Balance 400 - Medications Medications: Current Medications Benztropine Mesylate (Cogentin) 0.5 mg PO DAILY [facility] Last Admin: 10/29/16 09:53 Dose: Not Given Carvedilol (Coreg) 6.25 mg PO BID [facility] Last Admin: 10/29/16 18:23 Dose: Not Given Clonazepam (Klonopin) 0.5 mg PO TID [facility] Last Admin: 10/29/16 18:24 Dose: Not Given Furosemide (Lasix) 40 mg PO DAILY [facility] Last Admin: 10/29/16 09:53 Dose: Not Given Home Med (Lurasidone Hcl [Latuda]) 80 mg PO HS [facility] Pantoprazole Sodium 40 mg/ (Sodium Chloride) 100 mls @ 20 mls/hr IVPB Q5H [facility] PRN Reason: 8 MG/HR Last Admin: 10/29/16 21:00 Dose: 20 mls/hr Lactated Ringer's (Lactated Ringer's) 1,000 mls @ 100 mls/hr IV .Q10H [facility] Last Admin: 10/29/16 22:33 Dose: 100 mls/hr Iron Sucrose 200 mg/ Sodium (Chloride) 110 mls @ 110 mls/hr IVPB DAILY [facility] Stop: 10/31/16 20:01 Last Admin: 10/29/16 18:07 Dose: 110 mls/hr Octreotide Acetate 1,250 mcg/ (Sodium Chloride) 252.5 mls @ 10 mls/hr IV .Q24H [facility] PRN Reason: Protocol Stop: 10/31/16 16:45 Last Admin: 10/30/16 01:00 Dose: 10 mls/hr Cefepime HCl 1 gm/ Sodium (Chloride) 100 mls @ 100 mls/hr IVPB DAILY [facility] Lamotrigine (Lamictal) 200 mg PO BID [facility] Last Admin: 10/29/16 18:24 Dose: Not Given Levothyroxine Sodium (Synthroid) 75 mcg PO DAILY@0630 [facility] Last Admin: 10/29/16 06:30 Dose: 75 mcg Oxybutynin Chloride (Ditropan Tab) 5 mg PO BID [facility] Last Admin: 10/29/16 18:24 Dose: Not Given Promethazine HCl (Phenergan Syrup) 6.25 mg PO Q6H [facility] Last Admin: 10/29/16 22:08 Dose: 6.25 mg Spironolactone (Aldactone) 100 mg PO DAILY [facility] Last Admin: 10/29/16 09:52 Dose: Not Given Ursodiol (Actigall) 300 mg PO BID [facility] Last Admin: 10/29/16 18:23 Dose: Not Given Zolpidem Tartrate (Ambien) 10 mg PO HS PRN PRN Reason: Insomnia - Labs Labs: 10/29/16 09:05 10/29/16 09:30 PT 13.5 SECONDS (9.6-11.2) H 10/29/16 09:30 INR 1.30 (0.92-1.08) H 10/29/16 09:30 APTT 22.8 SECONDS (23.3-32.5) L 10/27/16 11:47 - Head Exam Head Exam: ATRAUMATIC - Eye Exam Eye Exam: Normal appearance - ENT Exam ENT Exam: Mucous Membranes Dry - Respiratory Exam Respiratory Exam: Clear to Ausculation Bilateral - Cardiovascular Exam Cardiovascular Exam: +S1, +S2 - GI/Abdominal Exam GI & Abdominal Exam: Normal Bowel Sounds Assessment and Plan (1) Pancytopenia Assessment & Plan: liver disease, thrombopoietin dysregulation, splenic sequestration GI bleeding s/p PRBC transfusion and EGD IV iron Status: Chronic (2) Coagulopathy Assessment & Plan: liver disease Status: Acute
[2016-10-30] MEDS: Promethazine 6.25 MG/5 ML CUP PO SCH ×4 (02:34→21:31)
[2016-10-30] MEDS: Pantoprazole 40 MG in Sodium Chloride 0.9% 100 ML IVPB SCH ×2 (02:35→07:15)
[2016-10-30] MEDS: Levothyroxine 75 MCG TAB PO SCH (05:56)
[2016-10-30 07:28] LABS: BASO % 0.6 % (0.0-2.0); EOS # 0.1 K/uL (0.0-0.7); EOS % 1.5 % (0.0-4.0); HEMATOCRIT 33.3 % (34.0-47.0); LYMPH # 0.9 K/uL (1.0-4.3); LYMPH % 21.9 % (20.0-40.0); MEAN CELL VOLUME 83.2 fl (81.0-99.0); MEAN CORPUSCULAR HGB CONC 32.4 g/dL (33.0-37.0); MEAN PLATELET VOLUME 11.1 fl (7.2-11.7); MONO # 0.4 K/uL (0.0-0.8); NEUT # 2.6 K/uL (1.8-7.0); NRBC % 0.5 % (0.0-0.0); RED CELL DISTRIBUTION WIDTH 18.7 % (11.5-14.5); WHITE BLOOD COUNT 3.9 K/uL (4.8-10.8)
[2016-10-30 07:44] LABS: ALKALINE PHOSPHATASE 110 U/L (38-126); ALT/SGPT 50 U/L (9-52); AST/SGOT 58 U/L (14-36); BILIRUBIN,TOTAL 3.2 mg/dl (0.2-1.3); BLOOD UREA NITROGEN 9 mg/dl (7-17); CARBON DIOXIDE 21 mmol/L (22-30); CHLORIDE 109 mmol/L (98-107); GFR AFRICAN-AMERICAN > 60; GLUCOSE,RANDOM 85 mg/dL (65-105); POTASSIUM 3.9 MMOL/L (3.6-5.0); SODIUM 143 mmol/l (132-148)
[2016-10-30 07:50] LABS: ALB/GLOB RATIO 0.8 (1.0-2.1)
--- NOTE | 2016-10-30 08:13 | CP.PCM.PN ---
Subjective - Date & Time of Evaluation Date of Evaluation: 10/30/16 Time of Evaluation: 08:11 - Subjective Subjective: no complaints except dizzines, hgb now 10.5 no f/c, n/v/d. had some bloody secretions via nose. no bloody vomitus/diarrhea. had varices banded yesterday pts last etoh 18 months ago Objective - Vital Signs/Intake and Output Vital Signs (last 24 hours): Temp Pulse Resp BP Pulse Ox 98.5 F 75 20 97/58 L 99 10/30/16 05:11 10/30/16 05:11 10/30/16 05:11 10/30/16 05:11 10/30/16 05:11 - Medications Medications: Current Medications Benztropine Mesylate (Cogentin) 0.5 mg PO DAILY [facility] Last Admin: 10/29/16 09:53 Dose: Not Given Carvedilol (Coreg) 6.25 mg PO BID [facility] Last Admin: 10/29/16 18:23 Dose: Not Given Clonazepam (Klonopin) 0.5 mg PO TID [facility] Last Admin: 10/29/16 18:24 Dose: Not Given Furosemide (Lasix) 40 mg PO DAILY [facility] Last Admin: 10/29/16 09:53 Dose: Not Given Home Med (Lurasidone Hcl [Latuda]) 80 mg PO [facility] Pantoprazole Sodium 40 mg/ (Sodium Chloride) 100 mls @ 20 mls/hr IVPB Q5H [facility] PRN Reason: 8 MG/HR Last Admin: 10/30/16 02:35 Dose: 20 mls/hr Lactated Ringer's (Lactated Ringer's) 1,000 mls @ 100 mls/hr IV .Q10H [facility] Last Admin: 10/29/16 22:33 Dose: 100 mls/hr Iron Sucrose 200 mg/ Sodium (Chloride) 110 mls @ 110 mls/hr IVPB DAILY [facility] Stop: 10/31/16 20:01 Last Admin: 10/29/16 18:07 Dose: 110 mls/hr Octreotide Acetate 1,250 mcg/ (Sodium Chloride) 252.5 mls @ 10 mls/hr IV .Q24H [facility] PRN Reason: Protocol Stop: 10/31/16 16:45 Last Admin: 10/30/16 01:00 Dose: 10 mls/hr Cefepime HCl 1 gm/ Sodium (Chloride) 100 mls @ 100 mls/hr IVPB DAILY [facility] Lamotrigine (Lamictal) 200 mg PO BID [facility] Last Admin: 10/29/16 18:24 Dose: Not Given Levothyroxine Sodium (Synthroid) 75 mcg PO DAILY@0630 [facility] Last Admin: 10/30/16 05:56 Dose: 75 mcg Oxybutynin Chloride (Ditropan Tab) 5 mg PO BID [facility] Last Admin: 10/29/16 18:24 Dose: Not Given Promethazine HCl (Phenergan Syrup) 6.25 mg PO Q6H [facility] Last Admin: 10/30/16 02:34 Dose: 6.25 mg Spironolactone (Aldactone) 100 mg PO DAILY [facility] Last Admin: 10/29/16 09:52 Dose: Not Given Ursodiol (Actigall) 300 mg PO BID [facility] Last Admin: 10/29/16 18:23 Dose: Not Given Zolpidem Tartrate (Ambien) 10 mg PO HS PRN PRN Reason: Insomnia - Labs Labs: 10/30/16 05:50 10/30/16 05:50 PT 13.5 SECONDS (9.6-11.2) H 10/29/16 09:30 INR 1.30 (0.92-1.08) H 10/29/16 09:30 APTT 22.8 SECONDS (23.3-32.5) L 10/27/16 11:47 - Constitutional Appears: Well, Non-toxic, No Acute Distress - Head Exam Head Exam: ATRAUMATIC, NORMAL INSPECTION, NORMOCEPHALIC - Eye Exam Eye Exam: EOMI, Normal appearance, PERRL Pupil Exam: NORMAL ACCOMODATION, PERRL - ENT Exam ENT Exam: Mucous Membranes Moist, Normal Exam - Neck Exam Neck Exam: Full ROM, Normal Inspection. absent: Lymphadenopathy - Respiratory Exam Respiratory Exam: Clear to Ausculation Bilateral, NORMAL BREATHING PATTERN - Cardiovascular Exam Cardiovascular Exam: REGULAR RHYTHM, RRR, +S1, +S2. absent: Murmur - GI/Abdominal Exam GI & Abdominal Exam: Soft, Normal Bowel Sounds. absent: Tenderness - Extremities Exam Extremities Exam: Full ROM, Normal Capillary Refill, Normal Inspection. absent : Joint Swelling, Pedal Edema - Back Exam Back Exam: NORMAL INSPECTION - Neurological Exam Neurological Exam: Alert, Awake, CN II-XII Intact, Normal Gait, Oriented x3 - Psychiatric Exam Psychiatric exam: Normal Affect, Normal Mood - Skin Skin Exam: Dry, Intact, Normal Color, Warm Assessment and Plan (1) Cirrhosis of liver Assessment & Plan: last etoh 18 months, gi cause of bleeding, coaguloatphy, pancytopenia Status: Acute (2) Colitis Assessment & Plan: anbx gi ppi Status: Acute (3) GI bleed Assessment & Plan: gi transfusion prn osterotide Status: Acute (4) Pancreatitis Assessment & Plan: trend lipase npo cld Status: Acute (5) DVT prophylaxis Assessment & Plan: scd and ae hose no anticoag r/t gi bleed Status: Acute (6) Pancytopenia Assessment & Plan: heme/onc transfuse prn Status: Chronic (7) Coagulopathy Assessment & Plan: r/t cirrhosis gi heme/onc Status: Acute
[2016-10-30] MEDS ORDERED: Cefepime 1 GM in Sodium Chloride 0.9% 100 ML IVPB ONE (15:00)
--- NOTE | 2016-10-30 15:00 | CP.PCM.PN ---
Subjective - Date & Time of Evaluation Date of Evaluation: 10/30/16 Time of Evaluation: 12:00 - Subjective Subjective: Patient seen at bedside this am. No overnight events or melena. Denies pain. s/ p EGd yesterday with large EV - 5 bands placed. Objective - Vital Signs/Intake and Output Vital Signs (last 24 hours): Temp Pulse Resp BP Pulse Ox 98.3 F 77 18 98/62 L 97 10/30/16 08:00 10/30/16 09:00 10/30/16 08:00 10/30/16 08:32 10/30/16 08:00 - Medications Medications: Current Medications Benztropine Mesylate (Cogentin) 0.5 mg PO DAILY [facility] Last Admin: 10/30/16 08:30 Dose: 0.5 mg Carvedilol (Coreg) 6.25 mg PO BID [facility] Last Admin: 10/30/16 08:30 Dose: Not Given Clonazepam (Klonopin) 0.5 mg PO TID [facility] Last Admin: 10/30/16 08:35 Dose: 0.5 mg Furosemide (Lasix) 40 mg PO DAILY [facility] Last Admin: 10/30/16 08:32 Dose: Not Given Home Med (Lurasidone Hcl [Latuda]) 80 mg PO HS [facility] Lactated Ringer's (Lactated Ringer's) 1,000 mls @ 100 mls/hr IV .Q10H [facility] Last Admin: 10/29/16 22:33 Dose: 100 mls/hr Iron Sucrose 200 mg/ Sodium (Chloride) 110 mls @ 110 mls/hr IVPB DAILY [facility] Stop: 10/31/16 20:01 Last Admin: 10/30/16 11:00 Dose: 110 mls/hr Octreotide Acetate 1,250 mcg/ (Sodium Chloride) 252.5 mls @ 10 mls/hr IV .Q24H [facility] PRN Reason: Protocol Stop: 10/31/16 16:45 Last Admin: 10/30/16 01:00 Dose: 10 mls/hr Cefepime HCl 1 gm/ Sodium (Chloride) 50 mls @ 50 mls/hr IVPB DAILY [facility] Cefepime HCl 1 gm/ Sodium (Chloride) 100 mls @ 100 mls/hr IVPB ONCE ONE Stop: 10/31/16 13:44 Lamotrigine (Lamictal) 200 mg PO BID [facility] Last Admin: 10/30/16 08:31 Dose: 200 mg Levothyroxine Sodium (Synthroid) 75 mcg PO DAILY@0630 [facility] Last Admin: 10/30/16 05:56 Dose: 75 mcg Oxybutynin Chloride (Ditropan Tab) 5 mg PO BID [facility] Last Admin: 10/30/16 08:31 Dose: 5 mg Promethazine HCl (Phenergan Syrup) 6.25 mg PO Q6H [facility] Last Admin: 10/30/16 08:33 Dose: 6.25 mg Spironolactone (Aldactone) 100 mg PO DAILY [facility] Last Admin: 10/30/16 08:29 Dose: 100 mg Ursodiol (Actigall) 300 mg PO BID [facility] Last Admin: 10/30/16 08:29 Dose: 300 mg Zolpidem Tartrate (Ambien) 10 mg PO HS PRN PRN Reason: Insomnia - Labs Labs: 10/30/16 05:50 10/30/16 05:50 PT 13.5 SECONDS (9.6-11.2) H 10/29/16 09:30 INR 1.30 (0.92-1.08) H 10/29/16 09:30 APTT 22.8 SECONDS (23.3-32.5) L 10/27/16 11:47 - Constitutional Appears: Well, Non-toxic, No Acute Distress - Head Exam Head Exam: ATRAUMATIC, NORMAL INSPECTION, NORMOCEPHALIC - Eye Exam Eye Exam: EOMI, Normal appearance, PERRL - ENT Exam ENT Exam: Mucous Membranes Moist, Normal Exam - Respiratory Exam Respiratory Exam: Clear to Ausculation Bilateral, NORMAL BREATHING PATTERN - Cardiovascular Exam Cardiovascular Exam: REGULAR RHYTHM, +S1, +S2. absent: Murmur - GI/Abdominal Exam GI & Abdominal Exam: Soft, Normal Bowel Sounds. absent: Tenderness - Extremities Exam Extremities Exam: Full ROM, Normal Capillary Refill, Normal Inspection. absent : Joint Swelling, Pedal Edema - Neurological Exam Neurological Exam: Alert, Awake, CN II-XII Intact, Normal Gait, Oriented x3 - Psychiatric Exam Psychiatric exam: Normal Affect, Normal Mood - Skin Skin Exam: Dry, Intact, Normal Color, Warm Assessment and Plan - Assessment and Plan (Free Text) Assessment: 51 year old female with history of alcoholic cirrhosis complicated by ascites, varices with prior paracentesis 05/2015 and 08/2016 without SBP, GI Bleed 11/2014 with EGD showing esophageal, gastric, and splenic varices without banding presented with one episode of hematemesis. CT A/P PO/IV contrast showing prominent left hepatic lobe, varices, and hepatosplenomegay. She states last alcohol drink was one year ago. States had appointment with [facility] three weeks ago for routine labs and Ultrasound, (Dr. Lew?), with follow up appointment . Current MELD 8. s/p EGd yesterday showing large EV s/p 5 bands placed. Continue octreotide drip for 72 hours and cefepime for 3 days. Will need transplant evaluation upon discharge Plan: Alcoholic cirrhosis Esophageal varices / banding - Continue octreotide gtt for 72 hours - Continue cefepime for 72 hours - Should be discharged on propranolol - Repeat EGD in 4 weeks for variceal obliteration - Needs transplant evaluation - CT with triple phase scan for liver lesion - Needs outpatient colonoscopy - Alcohol cessation -Close follow up with GI/ hepatology - Follow hepatitis and autoimmune serologies
[2016-10-30] MEDS: Lactated Ringer's 1,000 ML IV SCH (15:45)
--- NOTE | 2016-10-31 02:11 | CP.PCM.PN ---
Subjective - Date & Time of Evaluation Date of Evaluation: 10/30/16 Time of Evaluation: 16:00 - Subjective Subjective: Feeling better Objective - Vital Signs/Intake and Output Vital Signs (last 24 hours): Temp Pulse Resp BP Pulse Ox 99.1 F 95 H 21 94/56 L 95 10/30/16 23:49 10/30/16 23:49 10/30/16 23:49 10/30/16 23:49 10/30/16 23:49 - Medications Medications: Current Medications Benztropine Mesylate (Cogentin) 0.5 mg PO DAILY [facility] Last Admin: 10/30/16 08:30 Dose: 0.5 mg Carvedilol (Coreg) 6.25 mg PO BID [facility] Last Admin: 10/30/16 17:39 Dose: Not Given Clonazepam (Klonopin) 0.5 mg PO TID [facility] Last Admin: 10/30/16 17:42 Dose: 0.5 mg Furosemide (Lasix) 40 mg PO DAILY [facility] Last Admin: 10/30/16 08:32 Dose: Not Given Home Med (Lurasidone Hcl [Latuda]) 80 mg PO HS [facility] Lactated Ringer's (Lactated Ringer's) 1,000 mls @ 100 mls/hr IV .Q10H [facility] Last Admin: 10/30/16 15:45 Dose: 100 mls/hr Iron Sucrose 200 mg/ Sodium (Chloride) 110 mls @ 110 mls/hr IVPB DAILY [facility] Stop: 10/31/16 20:01 Last Admin: 10/30/16 11:00 Dose: 110 mls/hr Octreotide Acetate 1,250 mcg/ (Sodium Chloride) 252.5 mls @ 10 mls/hr IV .Q24H [facility] PRN Reason: Protocol Stop: 10/31/16 16:45 Last Admin: 10/30/16 16:45 Dose: 10 mls/hr Cefepime HCl 1 gm/ Sodium (Chloride) 100 mls @ 100 mls/hr IVPB DAILY [facility] Lamotrigine (Lamictal) 200 mg PO BID [facility] Last Admin: 10/30/16 17:39 Dose: 200 mg Levothyroxine Sodium (Synthroid) 75 mcg PO DAILY@0630 [facility] Last Admin: 10/30/16 05:56 Dose: 75 mcg Oxybutynin Chloride (Ditropan Tab) 5 mg PO BID [facility] Last Admin: 10/30/16 17:39 Dose: 5 mg Promethazine HCl (Phenergan Syrup) 6.25 mg PO Q6H [facility] Last Admin: 10/30/16 21:31 Dose: 6.25 mg Spironolactone (Aldactone) 100 mg PO DAILY [facility] Last Admin: 10/30/16 08:29 Dose: 100 mg Ursodiol (Actigall) 300 mg PO BID [facility] Last Admin: 10/30/16 17:38 Dose: 300 mg Zolpidem Tartrate (Ambien) 10 mg PO HS PRN PRN Reason: Insomnia - Labs Labs: 10/30/16 05:50 10/30/16 05:50 PT 13.5 SECONDS (9.6-11.2) H 10/29/16 09:30 INR 1.30 (0.92-1.08) H 10/29/16 09:30 APTT 22.8 SECONDS (23.3-32.5) L 10/27/16 11:47 - Head Exam Head Exam: ATRAUMATIC - Eye Exam Eye Exam: Normal appearance - ENT Exam ENT Exam: Mucous Membranes Dry - Respiratory Exam Respiratory Exam: NORMAL BREATHING PATTERN - Cardiovascular Exam Cardiovascular Exam: +S1, +S2 - GI/Abdominal Exam GI & Abdominal Exam: Normal Bowel Sounds - Extremities Exam Extremities Exam: Normal Inspection Assessment and Plan (1) Pancytopenia Assessment & Plan: liver disease, splenic sequestration iron deficiency s/p PRBC tx and Venofer Status: Chronic (2) Coagulopathy Assessment & Plan: liver disease Status: Acute
[2016-10-31] MEDS: Promethazine 6.25 MG/5 ML CUP PO SCH ×4 (04:26→21:05)
[2016-10-31] MEDS: Lactated Ringer's 1,000 ML IV SCH ×3 (05:03→21:03)
[2016-10-31] MEDS: Levothyroxine 75 MCG TAB PO SCH (06:40)
[2016-10-31 07:13] LABS: BASO % 0.5 % (0.0-2.0); EOS # 0.1 K/uL (0.0-0.7); EOS % 1.3 % (0.0-4.0); HEMATOCRIT 33.8 % (34.0-47.0); LYMPH % 23.2 % (20.0-40.0); MEAN CELL VOLUME 83.4 fl (81.0-99.0); MEAN CORPUSCULAR HEMOGLOBIN 27.1 pg (27.0-31.0); MEAN CORPUSCULAR HGB CONC 32.5 g/dL (33.0-37.0); MONO # 0.3 K/uL (0.0-0.8); MONO % 8.2 % (0.0-10.0); NEUT # 2.9 K/uL (1.8-7.0); NEUT % 66.8 % (50.0-75.0); NRBC % 0.5 % (0.0-0.0); WHITE BLOOD COUNT 4.3 K/uL (4.8-10.8)
[2016-10-31 07:31] LABS: ALB/GLOB RATIO 0.9 (1.0-2.1); ALKALINE PHOSPHATASE 105 U/L (38-126); ALT/SGPT 51 U/L (9-52); AST/SGOT 50 U/L (14-36); BILIRUBIN,TOTAL 1.7 mg/dl (0.2-1.3); BLOOD UREA NITROGEN 5 mg/dl (7-17); CALCIUM 8.3 mg/dL (8.4-10.2); CARBON DIOXIDE 23 mmol/L (22-30); CHLORIDE 105 mmol/L (98-107); GFR AFRICAN-AMERICAN > 60; GLUCOSE,RANDOM 103 mg/dL (65-105); POTASSIUM 3.9 MMOL/L (3.6-5.0); SODIUM 137 mmol/l (132-148); TOTAL PROTEIN 6.1 G/DL (6.3-8.2)
--- NOTE | 2016-10-31 08:06 | CP.PCM.PN ---
Subjective - Date & Time of Evaluation Date of Evaluation: 10/31/16 Time of Evaluation: 08:04 - Subjective Subjective: pt donig well, no distress/complaints except much improved dizzines. protonix gtt d/c. sandostatin continues. no bfurther gi bleeding. has scant sanguinous dc from nose.no f/c, n/v/d pts bun/cr elevated on admission-likely r/t dehydration on admission. now wnl after 4 units prbc and ivf Objective - Vital Signs/Intake and Output Vital Signs (last 24 hours): Temp Pulse Resp BP Pulse Ox 98.3 F 80 20 93/53 L 96 10/31/16 04:42 10/31/16 04:42 10/31/16 04:42 10/31/16 04:42 10/31/16 04:42 - Medications Medications: Current Medications Benztropine Mesylate (Cogentin) 0.5 mg PO DAILY [facility] Last Admin: 10/30/16 08:30 Dose: 0.5 mg Carvedilol (Coreg) 6.25 mg PO BID [facility] Last Admin: 10/30/16 17:39 Dose: Not Given Clonazepam (Klonopin) 0.5 mg PO TID [facility] Last Admin: 10/30/16 17:42 Dose: 0.5 mg Furosemide (Lasix) 40 mg PO DAILY [facility] Last Admin: 10/30/16 08:32 Dose: Not Given Home Med (Lurasidone Hcl [Latuda]) 80 mg PO HS [facility] Lactated Ringer's (Lactated Ringer's) 1,000 mls @ 100 mls/hr IV .Q10H [facility] Last Admin: 10/31/16 05:03 Dose: 100 mls/hr Iron Sucrose 200 mg/ Sodium (Chloride) 110 mls @ 110 mls/hr IVPB DAILY [facility] Stop: 10/31/16 20:01 Last Admin: 10/30/16 11:00 Dose: 110 mls/hr Octreotide Acetate 1,250 mcg/ (Sodium Chloride) 252.5 mls @ 10 mls/hr IV .Q24H [facility] PRN Reason: Protocol Stop: 10/31/16 16:45 Last Admin: 10/30/16 16:45 Dose: 10 mls/hr Cefepime HCl 1 gm/ Sodium (Chloride) 100 mls @ 100 mls/hr IVPB DAILY [facility] Lamotrigine (Lamictal) 200 mg PO BID [facility] Last Admin: 10/30/16 17:39 Dose: 200 mg Levothyroxine Sodium (Synthroid) 75 mcg PO DAILY@0630 [facility] Last Admin: 10/31/16 06:40 Dose: 75 mcg Oxybutynin Chloride (Ditropan Tab) 5 mg PO BID [facility] Last Admin: 10/30/16 17:39 Dose: 5 mg Promethazine HCl (Phenergan Syrup) 6.25 mg PO Q6H [facility] Last Admin: 10/31/16 04:26 Dose: Not Given Spironolactone (Aldactone) 100 mg PO DAILY [facility] Last Admin: 10/30/16 08:29 Dose: 100 mg Ursodiol (Actigall) 300 mg PO BID [facility] Last Admin: 10/30/16 17:38 Dose: 300 mg Zolpidem Tartrate (Ambien) 10 mg PO HS PRN PRN Reason: Insomnia - Labs Labs: 10/31/16 05:35 10/31/16 05:35 PT 14.1 SECONDS (9.6-11.2) H 10/31/16 05:30 INR 1.36 (0.92-1.08) H 10/31/16 05:30 APTT 22.8 SECONDS (23.3-32.5) L 10/27/16 11:47 - Constitutional Appears: Well, Non-toxic, No Acute Distress - Head Exam Head Exam: ATRAUMATIC, NORMAL INSPECTION, NORMOCEPHALIC - Eye Exam Eye Exam: EOMI, Normal appearance, PERRL Pupil Exam: NORMAL ACCOMODATION, PERRL - ENT Exam ENT Exam: Mucous Membranes Moist, Normal Exam - Neck Exam Neck Exam: Full ROM, Normal Inspection. absent: Lymphadenopathy - Respiratory Exam Respiratory Exam: Clear to Ausculation Bilateral, NORMAL BREATHING PATTERN - Cardiovascular Exam Cardiovascular Exam: REGULAR RHYTHM, RRR, +S1, +S2. absent: Murmur - GI/Abdominal Exam GI & Abdominal Exam: Soft, Normal Bowel Sounds. absent: Tenderness - Extremities Exam Extremities Exam: Full ROM, Normal Capillary Refill, Normal Inspection. absent : Joint Swelling, Pedal Edema - Back Exam Back Exam: NORMAL INSPECTION - Neurological Exam Neurological Exam: Alert, Awake, CN II-XII Intact, Normal Gait, Oriented x3 - Psychiatric Exam Psychiatric exam: Normal Affect, Normal Mood - Skin Skin Exam: Dry, Intact, Normal Color, Warm Assessment and Plan (1) Cirrhosis of liver Status: Acute (2) Colitis Status: Acute (3) GI bleed Status: Acute (4) Pancreatitis Status: Acute (5) DVT prophylaxis Status: Acute (6) Pancytopenia Status: Chronic (7) Coagulopathy Status: Acute - Assessment and Plan (Free Text) Assessment: (1) Cirrhosis of liver Assessment & Plan: last etoh 18 months, gi cause of bleeding, coaguloatphy, pancytopenia Status: Acute (2) Colitis Assessment & Plan: anbx gi ppi Status: Acute (3) GI bleed Assessment & Plan: gi transfusion prn osterotide no further bleeding Status: Acute (4) Pancreatitis Assessment & Plan: trend lipase cld Status: Acute (5) DVT prophylaxis Assessment & Plan: scd and ae hose no anticoag r/t gi bleed Status: Acute (6) Pancytopenia Assessment & Plan: heme/onc transfuse prn bw improving Status: Chronic (7) Coagulopathy Assessment & Plan: r/t cirrhosis gi heme/onc stable Status: Acute 7-dehydration on admission-now hydration
[2016-10-31] MEDS: Cefepime 1 GM in Sodium Chloride 0.9% 100 ML IVPB SCH (10:26)
[2016-10-31] MEDS ORDERED: Cefepime 1 GM in Sodium Chloride 0.9% 100 ML IVPB ONE (12:45)
--- NOTE | 2016-10-31 16:20 | CP.PCM.PN ---
Subjective - Date & Time of Evaluation Date of Evaluation: 10/31/16 Time of Evaluation: 16:17 - Subjective Subjective: RFV: Cirrhosis S: No acute events. No bleeding. Tolerating diet. No abdominal pain. Objective - Vital Signs/Intake and Output Vital Signs (last 24 hours): Temp Pulse Resp BP Pulse Ox 98.5 F 74 20 90/60 L 98 10/31/16 16:03 10/31/16 16:03 10/31/16 16:03 10/31/16 16:00 10/31/16 16:03 - Medications Medications: Current Medications Benztropine Mesylate (Cogentin) 0.5 mg PO DAILY [facility] Last Admin: 10/31/16 10:24 Dose: 0.5 mg Carvedilol (Coreg) 6.25 mg PO BID [facility] Last Admin: 10/31/16 16:00 Dose: Not Given Clonazepam (Klonopin) 0.5 mg PO TID [facility] Last Admin: 10/31/16 16:01 Dose: Not Given Furosemide (Lasix) 40 mg PO DAILY [facility] Last Admin: 10/31/16 10:26 Dose: Not Given Home Med (Lurasidone Hcl [Latuda]) 80 mg PO HS [facility] Lactated Ringer's (Lactated Ringer's) 1,000 mls @ 100 mls/hr IV .Q10H [facility] Last Admin: 10/31/16 05:03 Dose: 100 mls/hr Iron Sucrose 200 mg/ Sodium (Chloride) 110 mls @ 110 mls/hr IVPB DAILY [facility] Stop: 10/31/16 20:01 Last Admin: 10/31/16 10:27 Dose: 110 mls/hr Cefepime HCl 1 gm/ Sodium (Chloride) 100 mls @ 100 mls/hr IVPB DAILY [facility] Last Admin: 10/31/16 10:26 Dose: 100 mls/hr Octreotide Acetate 1,250 mcg/ (Sodium Chloride) 252.5 mls @ 10 mls/hr IV .Q24H [facility] PRN Reason: Protocol Stop: 11/01/16 16:45 Lamotrigine (Lamictal) 200 mg PO BID [facility] Last Admin: 10/31/16 10:25 Dose: 200 mg Levothyroxine Sodium (Synthroid) 75 mcg PO DAILY@0630 [facility] Last Admin: 10/31/16 06:40 Dose: 75 mcg Oxybutynin Chloride (Ditropan Tab) 5 mg PO BID [facility] Last Admin: 10/31/16 10:24 Dose: 5 mg Promethazine HCl (Phenergan Syrup) 6.25 mg PO Q6H [facility] Last Admin: 10/31/16 10:27 Dose: 6.25 mg Spironolactone (Aldactone) 100 mg PO DAILY [facility] Last Admin: 10/31/16 10:23 Dose: 100 mg Ursodiol (Actigall) 300 mg PO BID [facility] Last Admin: 10/31/16 10:23 Dose: 300 mg Zolpidem Tartrate (Ambien) 10 mg PO HS PRN PRN Reason: Insomnia - Labs Labs: 10/31/16 05:35 10/31/16 05:35 PT 14.1 SECONDS (9.6-11.2) H 10/31/16 05:30 INR 1.36 (0.92-1.08) H 10/31/16 05:30 APTT 22.8 SECONDS (23.3-32.5) L 10/27/16 11:47 - Constitutional Appears: No Acute Distress, Chronically Ill - Head Exam Head Exam: ATRAUMATIC, NORMOCEPHALIC - Eye Exam Eye Exam: Normal appearance - ENT Exam ENT Exam: Mucous Membranes Moist - Respiratory Exam Respiratory Exam: NORMAL BREATHING PATTERN. absent: Wheezes, Respiratory Distress - Cardiovascular Exam Cardiovascular Exam: +S1, +S2 - GI/Abdominal Exam GI & Abdominal Exam: Soft. absent: Distended, Tenderness - Neurological Exam Neurological Exam: Alert, Oriented x3 Assessment and Plan - Assessment and Plan (Free Text) Assessment: 51 year old female with history of EtOH cirrhosis complicated by ascites, varices admitted with hematemesis. 1. Alcoholic cirrhosis 2. Esophageal varices Plan: - Continue octreotide today, may discontinue tomorrow am - Continue cefepime for 72 hours for sbp prophylaxis - Should be discharged on propranolol - Repeat EGD in 4 weeks for variceal obliteration - Needs transplant evaluation as outpatient - CT with triple phase scan for liver lesion - Needs outpatient colonoscopy - Alcohol cessation -Close follow up with GI/ hepatology - diet as tolerated - continue PPI
[2016-11-01] MEDS: Promethazine 6.25 MG/5 ML CUP PO SCH ×3 (03:45→15:51)
[2016-11-01] MEDS: Levothyroxine 75 MCG TAB PO SCH (06:47)
[2016-11-01 07:31] LABS: ALB/GLOB RATIO 0.9 (1.0-2.1); AST/SGOT 41 U/L (14-36); BILIRUBIN,TOTAL 1.5 mg/dl (0.2-1.3); BLOOD UREA NITROGEN 6 mg/dl (7-17); CALCIUM 8.3 mg/dL (8.4-10.2); CARBON DIOXIDE 24 mmol/L (22-30); CHLORIDE 105 mmol/L (98-107); GFR AFRICAN-AMERICAN > 60; GLUCOSE,RANDOM 122 mg/dL (65-105); SODIUM 136 mmol/l (132-148); TOTAL PROTEIN 6.2 G/DL (6.3-8.2)
[2016-11-01 07:36] LABS: ALKALINE PHOSPHATASE 143 U/L (38-126)
[2016-11-01 07:37] LABS: ALT/SGPT 53 U/L (9-52)
[2016-11-01 07:39] LABS: BASO % 0.5 % (0.0-2.0); EOS # 0.1 K/uL (0.0-0.7); EOS % 2.4 % (0.0-4.0); HEMATOCRIT 33.2 % (34.0-47.0); LYMPH # 0.6 K/uL (1.0-4.3); LYMPH % 18.7 % (20.0-40.0); MEAN CELL VOLUME 84.9 fl (81.0-99.0); MEAN CORPUSCULAR HEMOGLOBIN 27.3 pg (27.0-31.0); MEAN CORPUSCULAR HGB CONC 32.2 g/dL (33.0-37.0); MEAN PLATELET VOLUME 11.6 fl (7.2-11.7); MONO # 0.3 K/uL (0.0-0.8); MONO % 9.8 % (0.0-10.0); NEUT # 2.1 K/uL (1.8-7.0); NEUT % 68.6 % (50.0-75.0); NRBC % 0.2 % (0.0-0.0); RED CELL DISTRIBUTION WIDTH 19.7 % (11.5-14.5); WHITE BLOOD COUNT 3.1 K/uL (4.8-10.8)
[2016-11-01 08:14] VITALS: RESP 18; O2SAT 97
[2016-11-01] MEDS: Cefepime 1 GM in Sodium Chloride 0.9% 100 ML IVPB SCH (08:32)
[2016-11-01] MEDS: Lactated Ringer's 1,000 ML IV SCH (08:33)
--- NOTE | 2016-11-01 08:59 | CP.PCM.PN ---
Subjective - Date & Time of Evaluation Date of Evaluation: 11/01/16 Time of Evaluation: 08:59 - Subjective Subjective: no bleeding, no dizziness, no pain. no f/c, n/v/d cleard by gi for dc, no home anbx coreg to be dc in favor of propranolol per gi Objective - Vital Signs/Intake and Output Vital Signs (last 24 hours): Temp Pulse Resp BP Pulse Ox 98.8 F 72 18 93/58 L 97 11/01/16 08:13 11/01/16 08:13 11/01/16 08:13 11/01/16 08:28 11/01/16 08:13 - Medications Medications: Current Medications Benztropine Mesylate (Cogentin) 0.5 mg PO DAILY [facility] Last Admin: 11/01/16 08:29 Dose: 0.5 mg Carvedilol (Coreg) 6.25 mg PO BID [facility] Last Admin: 11/01/16 08:29 Dose: Not Given Clonazepam (Klonopin) 0.5 mg PO TID [facility] Last Admin: 11/01/16 08:32 Dose: 0.5 mg Furosemide (Lasix) 40 mg PO DAILY [facility] Last Admin: 11/01/16 08:28 Dose: Not Given Home Med (Lurasidone Hcl [Latuda]) 80 mg PO HS [facility] Lactated Ringer's (Lactated Ringer's) 1,000 mls @ 100 mls/hr IV .Q10H [facility] Last Admin: 11/01/16 08:33 Dose: 100 mls/hr Cefepime HCl 1 gm/ Sodium (Chloride) 100 mls @ 100 mls/hr IVPB DAILY [facility] Last Admin: 11/01/16 08:32 Dose: 100 mls/hr Lamotrigine (Lamictal) 200 mg PO BID [facility] Last Admin: 11/01/16 08:27 Dose: 200 mg Levothyroxine Sodium (Synthroid) 75 mcg PO DAILY@0630 [facility] Last Admin: 11/01/16 06:47 Dose: 75 mcg Oxybutynin Chloride (Ditropan Tab) 5 mg PO BID [facility] Last Admin: 11/01/16 08:27 Dose: 5 mg Promethazine HCl (Phenergan Syrup) 6.25 mg PO Q6H [facility] Last Admin: 11/01/16 08:27 Dose: 6.25 mg Spironolactone (Aldactone) 100 mg PO DAILY [facility] Last Admin: 11/01/16 08:27 Dose: 100 mg Ursodiol (Actigall) 300 mg PO BID [facility] Last Admin: 11/01/16 08:28 Dose: 300 mg Zolpidem Tartrate (Ambien) 10 mg PO HS PRN PRN Reason: Insomnia - Labs Labs: 11/01/16 06:10 11/01/16 06:10 PT 14.1 SECONDS (9.6-11.2) H 10/31/16 05:30 INR 1.36 (0.92-1.08) H 10/31/16 05:30 APTT 22.8 SECONDS (23.3-32.5) L 10/27/16 11:47 Assessment and Plan (1) Cirrhosis of liver Status: Acute (2) Colitis Status: Acute (3) GI bleed Status: Acute (4) Pancreatitis Status: Acute (5) DVT prophylaxis Status: Acute (6) Pancytopenia Status: Chronic (7) Coagulopathy Status: Acute
[2016-11-01 12:34] VITALS: BP 89/61; PULSE 74; TEMP 98.4
--- NOTE | 2016-11-01 14:33 | CP.PCM.DIS ---
Provider - Provider Date of Admission: 10/27/16 14:40 Attending physician: Stanley Metz MD Primary care physician: Mariia Lopez MD Time Spent in preparation of Discharge (in minutes): 15 Diagnosis - Discharge Diagnosis (1) Cirrhosis of liver Status: Acute (2) Colitis Status: Acute (3) GI bleed Status: Acute (4) Pancreatitis Status: Acute (5) DVT prophylaxis Status: Acute (6) Pancytopenia Status: Chronic Priority: Medium (7) Coagulopathy Status: Acute Hospital Course - Lab Results Lab Results: Most Recent Lab Values WBC 3.1 K/uL (4.8-10.8) L 11/01/16 06:10 RBC 3.91 Mil/uL (3.80-5.20) 11/01/16 06:10 Hgb 10.7 g/dL (12.0-16.0) L 11/01/16 06:10 Hct 33.2 % (34.0-47.0) L 11/01/16 06:10 MCV 84.9 fl (81.0-99.0) 11/01/16 06:10 MCH 27.3 pg (27.0-31.0) 11/01/16 06:10 MCHC 32.2 g/dL (33.0-37.0) L 11/01/16 06:10 RDW 19.7 % (11.5-14.5) H 11/01/16 06:10 Plt Count 33 K/uL (130-400) L 11/01/16 06:10 MPV 11.6 fl (7.2-11.7) 11/01/16 06:10 Neut % (Auto) 68.6 % (50.0-75.0) 11/01/16 06:10 Lymph % (Auto) 18.7 % (20.0-40.0) L 11/01/16 06:10 Cameron % (Auto) 9.8 % (0.0-10.0) 11/01/16 06:10 Eos % (Auto) 2.4 % (0.0-4.0) 11/01/16 06:10 Baso % (Auto) 0.5 % (0.0-2.0) 11/01/16 06:10 Neut # 2.1 K/uL (1.8-7.0) 11/01/16 06:10 Lymph # 0.6 K/uL (1.0-4.3) L 11/01/16 06:10 Cameron # 0.3 K/uL (0.0-0.8) 11/01/16 06:10 Eos # 0.1 K/uL (0.0-0.7) 11/01/16 06:10 Baso # 0.0 K/uL (0.0-0.2) 11/01/16 06:10 PT 14.1 SECONDS (9.6-11.2) H 10/31/16 05:30 INR 1.36 (0.92-1.08) H 10/31/16 05:30 APTT 22.8 SECONDS (23.3-32.5) L 10/27/16 11:47 Sodium 136 mmol/l (132-148) 11/01/16 06:10 Potassium 4.0 MMOL/L (3.6-5.0) 11/01/16 06:10 Chloride 105 mmol/L (98-107) 11/01/16 06:10 Carbon Dioxide 24 mmol/L (22-30) 11/01/16 06:10 Anion Gap 11 (10-20) 11/01/16 06:10 BUN 6 mg/dl (7-17) L 11/01/16 06:10 Creatinine 0.7 mg/dL (0.7-1.2) 11/01/16 06:10 Est GFR ( Amer) > 60 11/01/16 06:10 Est GFR (Non-Af Amer) > 60 11/01/16 06:10 POC Glucose (mg/dL) 116 mg/dL (65-110) H 10/27/16 22:21 Random Glucose 122 mg/dL (65-105) H 11/01/16 06:10 Calcium 8.3 mg/dL (8.4-10.2) L 11/01/16 06:10 Iron 14 ug/dL (37-170) L 10/27/16 15:50 TIBC 397 ug/dL (250-450) 10/27/16 15:50 % Saturation 4 (20-55) L 10/27/16 15:50 Transferrin 320.59 mg/dL (206-381) 10/27/16 13:23 Ferritin 9.1 ng/Ml (11.1-264.0) L 10/27/16 15:00 Total Bilirubin 1.5 mg/dl (0.2-1.3) H 11/01/16 06:10 AST 41 U/L (14-36) H 11/01/16 06:10 ALT 53 U/L (9-52) H 11/01/16 06:10 Alkaline Phosphatase 143 U/L (38-126) H D 11/01/16 06:10 Troponin I < 0.0120 ng/mL (0.00-0.120) 10/27/16 11:47 Total Protein 6.2 G/DL (6.3-8.2) L 11/01/16 06:10 Albumin 2.9 g/dL (3.5-5.0) L 11/01/16 06:10 Globulin 3.3 gm/dL (2.2-3.9) 11/01/16 06:10 Albumin/Globulin Ratio 0.9 (1.0-2.1) L 11/01/16 06:10 Lipase 66 U/L (23-300) 10/29/16 09:30 Vitamin B12 895 pg/mL (239-931) 10/27/16 15:00 Alcohol, Quantitative < 10 mg/dl (0-10) 10/27/16 11:47 Influenza Typ A,B (EIA) Negative for flu a/b (NEGATIVE) 10/27/16 11:47 Grp A Beta Strep Ag Negative (NEGATIVE) 10/27/16 11:47 Blood Type A POSITIVE 10/27/16 14:11 Antibody Screen Negative 10/27/16 14:11 Crossmatch See Detail 10/27/16 14:11 BBK History Checked Patient has bt 10/27/16 14:11 Discharge Exam - Head Exam Head Exam: ATRAUMATIC, NORMAL INSPECTION, NORMOCEPHALIC - Eye Exam Eye Exam: EOMI, Normal appearance, PERRL Pupil Exam: NORMAL ACCOMODATION, PERRL - Respiratory Exam Respiratory Exam: Clear to PA & Lateral, NORMAL BREATHING PATTERN, UNREMARKABLE - Cardiovascular Exam Cardiovascular Exam: REGULAR RHYTHM, RRR, +S1, +S2 - GI/Abdominal Exam GI & Abdominal Exam: Normal Bowel Sounds, Soft, Unremarkable - Extremities Exam Extremities exam: full ROM, normal capillary refill, normal inspection, pedal pulses present - Back Exam Back exam: FULL ROM - Neurological Exam Neurological exam: Alert, CN II-XII Intact, Normal Gait, Oriented x3, Reflexes Normal - Psychiatric Exam Psychiatric exam: Normal Affect, Normal Mood - Skin Skin Exam: Dry, Intact, Normal Color, Warm Discharge Plan - Discharge Medications Prescriptions: Propranolol [Propranolol HCl] 10 mg PO 10 #90 tab - Follow Up Plan Condition: FAIR Disposition: HOME/ ROUTINE Additional Instructions: no bleeding, no dizziness, no pain. no f/c, n/v/d cleard by gi for dc, no home anbx coreg to be dc in favor of propranolol per gi final dx-liver cirrhosis, gi bleed, anemia r/t gi bleed, dehydration, r/t gi bleed, pancytopenia r/t liver dysfunction outpt gi eval, 4 wk egd, outpt liver transplant eval alcohol cessation Referrals: Mariia Lopez MD [Primary Care Provider] -
== END 2016-11-01 15:20 | disposition home or self-care (01) | DRG 468 ==
LOC: H.ER 10:37 → H.ERHOLD 14:40 → H.TEL 16:19
PROVIDERS: ADMIT Family Medicine; ATTEND Family Medicine
PROC: 30233N1 Transfusion of Nonautologous Red Blood Cells into Peripheral Vein, Percutaneous Approach (ICD-10-PCS; 2016-10-27)
PROC: 06L34CZ Occlusion of Esophageal Vein with Extraluminal Device, Percutaneous Endoscopic Approach (ICD-10-PCS; principal; 2016-10-29 14:15)
DX: K70.31 Alcoholic cirrhosis of liver with ascites (principal); D61.818 Other pancytopenia; I95.89 Other hypotension; D68.4 Acquired coagulation factor deficiency; K92.0 Hematemesis; K76.6 Portal hypertension; I85.10 Secondary esophageal varices without bleeding; K85.90 Acute pancreatitis without necrosis or infection, unspecified; E86.0 Dehydration; D50.0 Iron deficiency anemia secondary to blood loss (chronic); R16.1 Splenomegaly, not elsewhere classified; E03.9 Hypothyroidism, unspecified; F31.9 Bipolar disorder, unspecified; K52.9 Noninfective gastroenteritis and colitis, unspecified; Z87.891 Personal history of nicotine dependence; K29.70 Gastritis, unspecified, without bleeding; K29.80 Duodenitis without bleeding